=== PATIENT | male | born 1970 | race Caucasian/White ===

== ENCOUNTER → 2017-09-02 | Outpatient (CLI) | payer OTHER | END | disposition home or self-care (01) | LOC: PROCWHC3 14:37 | PROVIDERS: ATTEND Nurse Practitioner Family | DX: R05 Cough (principal) | CPT/HCPCS: 87502 ==

== ENCOUNTER 2018-02-03 18:11 | Emergency (ER) | payer OTHER ==
[2018-02-03 18:23] VITALS: RESP 18
[2018-02-03] MEDS ORDERED: Acetaminophen-Codeine 300-30mg TAB PO STA (19:13)
[2018-02-03] MEDS ORDERED: DIPH,PERTUS(ACELL)TETVAC-LF 0.5 ML VIAL IM ONE (19:15)
--- NOTE | 2018-02-03 19:19 | ED ---
General Adult HPI - General Chief complaint: Wound/Laceration Stated complaint: LACERATION LEFT INDEX FINGER Time Seen by Provider: 02/03/18 18:48 Source: patient, RN notes reviewed Mode of arrival: ambulatory Limitations: no limitations - History of Present Illness Initial comments: 47-year-old male presents to the emergency department for a chief complaint of laceration to his left index finger about one hour ago. Patient was using a paring knife when he accidentally cut his finger. Patient denies pain elsewhere in the finger. Patient denies pain elsewhere in the hand. No other injuries. Patient is not up-to-date on tetanus. Patient states he is able to move his finger without difficulty. Patient has no other complaints at this time including shortness of breath, chest pain, abdominal pain, nausea or vomiting, headache, or visual changes. - Related Data Allergies Allergy/AdvReac Type Severity Reaction Status Date / Time bee venom protein (honey bee) Allergy Anaphylaxis Verified 02/03/18 18:20 levofloxacin [From Levaquin] Allergy Anaphylaxis Verified 02/03/18 18:20 Review of Systems ROS Statement: Those systems with pertinent positive or pertinent negative responses have been documented in the HPI. ROS Other: All systems not noted in ROS Statement are negative. Past Medical History Past Medical History: No Reported History History of Any Multi-Drug Resistant Organisms: None Reported Past Surgical History: Hernia Repair, Orthopedic Surgery Past Psychological History: No Psychological Hx Reported Smoking Status: Current every day smoker Past Alcohol Use History: Occasional Past Drug Use History: Marijuana General Exam Limitations: no limitations General appearance: alert, in no apparent distress Head exam: Present: atraumatic, normocephalic, normal inspection Eye exam: Present: normal appearance ENT exam: Present: normal exam, mucous membranes moist Neck exam: Present: normal inspection, full ROM. Absent: tenderness, meningismus, lymphadenopathy Respiratory exam: Present: normal lung sounds bilaterally. Absent: respiratory distress, wheezes, rales, rhonchi, stridor Cardiovascular Exam: Present: regular rate, normal rhythm, normal heart sounds. Absent: systolic murmur, diastolic murmur, rubs, gallop, clicks Extremities exam: Present: full ROM (Full range of motion of the left second digit including the MCP PIP and DIP joints. There is a 1 cm laceration to the lateral aspect of the left second digit along the distal phalanx.), tenderness ( Tenderness around the laceration site), normal capillary refill (Refill less than 2 seconds and radial pulse 2+ in the left upper extremity), other ( Sensation intact in left second digit. All deep structures intact.). Absent: joint swelling (No swelling or ecchymosis noted.) Course Vital Signs 02/03/18 18:20 Temperature 98.2 F Pulse Rate 83 Respiratory 18 Rate Blood Pressure 160/113 O2 Sat by Pulse 98 Oximetry Procedures - Procedures Initial comment: Body area: Left second digit distal phalanx Laceration length: 1 cm Foreign bodies: no foreign bodies Tendon involvement: none Nerve involvement: none Vascular damage: no Anesthesia: local infiltration Local anesthetic: 2 mL 1% lidocaine Preparation: Patient was prepped and draped in the usual sterile fashion. Irrigation solution: saline Irrigation method: Saline jet lavage Skin closure:5-0 Ethilon using sterile technique Number of sutures: 3 Technique: interupted Dressing: antibiotic ointment/ gauze Patient tolerance: Patient tolerated the procedure well with no immediate complications. Medical Decision Making - Medical Decision Making 47-year-old male presents to the emergency department for a chief complaint of laceration to the left second finger about one hour ago. Patient was using a paring knife when he accidentally cut himself. He has about a 1 cm laceration to the distal phalanx of the lateral aspect. All deep structures intact. Full range of motion. Neurovascular intact. X-ray demonstrates no fractures or dislocations. No foreign bodies. Patient was given tenderness in the emergency department. Patient was sutured with 3 sutures. He will return in 7- 10 days to have sutures removed. He was educated on return to caution to including those for infection. He will follow up with primary care. Disposition Clinical Impression: Laceration Disposition: HOME SELF-CARE Condition: Good Instructions: Care For Your Stitches (ED), Soft Tissue Foreign Body (ED) Additional Instructions: Motrin and tylenol for pain. Please monitor for signs of infection such as spreading redness, streaking redness, drainage or fever and return if these occur. Return in 7-10 days to have sutures removed. Follow up with primary care in 1-2 days. Is patient prescribed a controlled substance at d/c from ED?: No Referrals: Venice Estevez MD [Primary Care Provider] - 1-2 days Time of Disposition: 19:49
[2018-02-03] MEDS ORDERED: LIDOCAINE 1% INJ 10MG/ML (20 ML MDV) SQ ONE (19:20)
--- NOTE | 2018-02-03 19:34 | XR ---
EXAMINATION TYPE: XR finger LT DATE OF EXAM: 02/03/2018 COMPARISON: NONE HISTORY: Cut finger with knife TECHNIQUE: 3 views FINDINGS: I see no fracture nor dislocation. Joint spaces are normal. There is no sign of a foreign b alyce. IMPRESSION: Negative left index finger exam.
[2018-02-03 20:10] VITALS: BP 137/67; PULSE 88; TEMP 97.2
== END 2018-02-03 20:10 | disposition home or self-care (01) ==
LOC: EC 18:11
DX: S61.211A Laceration without foreign body of left index finger without damage to nail, initial encounter (principal); F17.200 Nicotine dependence, unspecified, uncomplicated; Z23 Encounter for immunization; Z88.1 Allergy status to other antibiotic agents; Z91.030 Bee allergy status; W26.0XXA Contact with knife, initial encounter
CPT/HCPCS: 73140; 90715; 99283; 12001; 90471; J2001

== ENCOUNTER 2018-04-10 17:53 | Emergency (ER) | payer OTHER ==
[2018-04-10 17:59] VITALS: RESP 18
[2018-04-10] MEDS ORDERED: methylPREDNISolone SOD SUCCI 125 MG/2 ML VIAL IM ONE (18:23)
--- NOTE | 2018-04-10 18:26 | ED ---
URI HPI - General Chief Complaint: Upper Respiratory Infection Stated Complaint: POSS BRONCHITIS Time Seen by Provider: 04/10/18 18:19 Source: patient, RN notes reviewed Mode of arrival: ambulatory Limitations: no limitations - History of Present Illness Initial Comments: This is a pleasant 47-year-old male who presents emergency department stating that he has had 1 day of a hacking cough. Patient states she is coughing up a small amount of clear to white sputum. Patient denies any fever but has felt as if he may have had a low-grade fever. Patient denies any pain but states the cough is quite annoying and is unrelenting. Patient has been using her rescue inhaler as well as a nebulizer at home. Patient denies history of COPD or asthma. However the patient is a smoker. Patient is also a diabetic. Patient denies alcohol or drug abuse. No chest pain. No abdominal pain. No sore throat or earache. No stiff neck. No skin rashes or lesions. No difficulties with urination or bowel movements. MD Complaint: cough, rhinorrhea, nasal congestion - Related Data Previous Rx's Medication Instructions Recorded Albuterol Nebulized [Ventolin 2.5 mg INHALATION Q4H #25 nebu 04/10/18 Nebulized] Benzonatate [Tessalon Perles] 200 mg PO TID PRN #30 capsule 04/10/18 Doxycycline Hyclate [Vibramycin] 100 mg PO BID 3 Days #20 cap 04/10/18 Allergies Allergy/AdvReac Type Severity Reaction Status Date / Time bee venom protein (honey bee) Allergy Anaphylaxis Verified 04/10/18 17:58 levofloxacin [From Levaquin] Allergy Anaphylaxis Verified 04/10/18 17:58 Review of Systems ROS Statement: Those systems with pertinent positive or pertinent negative responses have been documented in the HPI. ROS Other: All systems not noted in ROS Statement are negative. Past Medical History Past Medical History: No Reported History History of Any Multi-Drug Resistant Organisms: None Reported Past Surgical History: Hernia Repair, Orthopedic Surgery Past Psychological History: No Psychological Hx Reported Smoking Status: Current every day smoker Past Alcohol Use History: Occasional Past Drug Use History: Marijuana General Exam Limitations: no limitations General appearance: alert, in no apparent distress Head exam: Present: atraumatic, normocephalic, normal inspection Eye exam: Present: normal appearance, PERRL, EOMI. Absent: scleral icterus, conjunctival injection, periorbital swelling ENT exam: Present: normal exam, normal oropharynx, mucous membranes moist, TM's normal bilaterally, normal external ear exam Neck exam: Present: normal inspection. Absent: tenderness, meningismus, lymphadenopathy Respiratory exam: Present: normal lung sounds bilaterally, other (Patient has a hacking cough throughout the course of my physical examination). Absent: respiratory distress, wheezes, rales, rhonchi, stridor Cardiovascular Exam: Present: regular rate, normal rhythm, normal heart sounds. Absent: systolic murmur, diastolic murmur, rubs, gallop, clicks GI/Abdominal exam: Present: soft, normal bowel sounds. Absent: distended, tenderness, guarding, rebound, rigid Extremities exam: Present: normal inspection, full ROM, normal capillary refill. Absent: tenderness, pedal edema, joint swelling, calf tenderness Back exam: Present: normal inspection Neurological exam: Present: alert, oriented X3, CN II-XII intact Psychiatric exam: Present: normal affect, normal mood Skin exam: Present: warm, dry, intact, normal color. Absent: rash Course Vital Signs 04/10/18 17:55 Temperature 98.5 F Pulse Rate 83 Respiratory 18 Rate Blood Pressure 128/74 O2 Sat by Pulse 98 Oximetry Medical Decision Making - Medical Decision Making Patient was counseled on acute bronchitis and possible viral versus bacterial etiology. Patient was requesting an antibiotic. I did agree to give her prescription. I advised delayed prescription as I believe his symptomology is due to a viral etiology. Chest x-ray was read by me and shows evidence of viral inflammation however no lobar consolidation. Awaiting radiology interpretation. Patient was counseled on smoking cessation. Patient advised to quit smoking immediately. Patient was also advised to follow-up with his regular physician. He knows she can return to the emergency department at anytime is symptoms worsen or any other problems arise. Case was discussed with ER physician and present the entire time. - Radiology Data Radiology results: image reviewed Disposition Clinical Impression: Acute bronchitis, Cough Disposition: HOME SELF-CARE Condition: Good Instructions: Acute Bronchitis (ED) Additional Instructions: Return to the ER at once if the symptoms worsen or problems or difficulties arise. Make a follow-up appointment with your regular physician. Prescriptions: Albuterol Nebulized [Ventolin Nebulized] 2.5 mg INHALATION Q4H #25 nebu Benzonatate [Tessalon Perles] 200 mg PO TID PRN #30 capsule PRN Reason: Cough Doxycycline Hyclate [Vibramycin] 100 mg PO BID 3 Days #20 cap Is patient prescribed a controlled substance at d/c from ED?: No Referrals: Venice Estevez MD [Primary Care Provider] - 1-2 days Time of Disposition: 19:06 Decision to Admit Reason: Admit from EC
--- NOTE | 2018-04-10 18:36 | XR ---
EXAMINATION TYPE: XR chest 2V DATE OF EXAM: 04/10/2018 COMPARISON: 11/22/2013 HISTORY: Cough TECHNIQUE: Frontal and lateral views of the chest are obtained. FINDINGS: Heart and mediastinum are normal. Lungs are clear. Diaphragm is normal. Bony thorax is nor mal. IMPRESSION: Normal chest. No change.
[2018-04-10 19:10] VITALS: BP 132/85; PULSE 85; TEMP 98.3
== END 2018-04-10 19:10 | disposition home or self-care (01) ==
LOC: EC 17:53
DX: J20.9 Acute bronchitis, unspecified (principal); E11.9 Type 2 diabetes mellitus without complications; F17.200 Nicotine dependence, unspecified, uncomplicated; Z71.6 Tobacco abuse counseling; Z91.030 Bee allergy status; Z88.1 Allergy status to other antibiotic agents
CPT/HCPCS: 71046; 99283; 96372; J2930

== ENCOUNTER 2018-08-20 10:42 | Observation (INO) | payer OTHER ==
[2018-08-20] MEDS ORDERED: ASPIRIN 81 MG PO STA (11:07)
[2018-08-20] MEDS ORDERED: HEPARIN SODIUM,PORCINE 5,000 UNIT/ML 1 ML VIAL IV PRN (11:10)
[2018-08-20] MEDS ORDERED: HEPARIN SODIUM,PORCINE 5,000 UNIT/ML 1 ML VIAL IV ONE (11:10)
--- NOTE | 2018-08-20 11:10 | ED ---
General Adult HPI - General Chief complaint: Chest Pain Stated complaint: poss heart attack Source: patient Mode of arrival: wheelchair Limitations: no limitations - Related Data Home Medications Medication Instructions Recorded Confirmed Gemfibrozil [Lopid] 600 mg PO AC-BID 08/20/18 08/20/18 Lisinopril [Zestril] 2.5 mg PO DAILY 08/20/18 08/20/18 Naproxen Sodium [Aleve] 220 mg PO DAILY PRN 08/20/18 08/20/18 metFORMIN HCL [Glucophage] 500 mg PO BID 08/20/18 08/20/18 Allergies Allergy/AdvReac Type Severity Reaction Status Date / Time bee venom protein (honey bee) Allergy Anaphylaxis Verified 08/20/18 11:19 levofloxacin [From Levaquin] Allergy Anaphylaxis Verified 08/20/18 11:19 Review of Systems ROS Statement: Those systems with pertinent positive or pertinent negative responses have been documented in the HPI. ROS Other: All systems not noted in ROS Statement are negative. Past Medical History Past Medical History: Diabetes Mellitus, Hyperlipidemia, Hypertension History of Any Multi-Drug Resistant Organisms: None Reported Past Surgical History: Hernia Repair, Orthopedic Surgery Past Psychological History: No Psychological Hx Reported Smoking Status: Current every day smoker Past Alcohol Use History: Occasional Past Drug Use History: Marijuana General Exam Limitations: no limitations Course Vital Signs 08/20/18 08/20/18 10:47 11:26 Temperature 98.1 F Pulse Rate 77 Pulse Rate [ 76 Left Sitting Pulse Oximetery ] Respiratory 16 Rate Blood Pressure 171/107 O2 Sat by Pulse 97 Oximetry Medical Decision Making - Medical Decision Making Dictation was produced using [employer] dictation software. please excuse any grammatical, word or spelling errors. Chief Complaint: 48 male past medical history diabetes, dyslipidemia hypertension presents with chest pain. History of Present Illness: 48-year-old male. He has multiple comorbidities. States today at approximately 8 AM he had episode of chest pain with radiation to the left upper extremity. He states that his symptoms resolved after several minutes. He tried calling on the 1 to get information about his symptoms however he was able to get any. He drove here with his . Patient states that his symptoms are mildly improved. Patient denies any cardiac history. He does have history of diabetes, dyslipidemia hypertension. Patient denies any diaphoresis but there is associated nausea. The ROS documented in this emergency department record has been reviewed and confirmed by me. Those systems with pertinent positive or negative responses have been documented in the HPI. All other systems are other negative and/or noncontributory. PHYSICAL EXAM: General Impression: Alert and oriented x3, not in acute distress HEENT: Normocephalic atraumatic, extra-ocular movements intact, pupils equal and reactive to light bilaterally, mucous membranes moist. Cardiovascular: Heart regular rate and rhythm, S1&S2 audible, no murmurs, rubs or gallops Chest: Lungs clear to auscultation bilaterally, no rhonchi, no wheeze, no rales Abdomen: Bowel sounds present, abdomen soft, non-tender, non-distended, no organomegaly Musculoskeletal: Pulses present and equal in all extremities, no peripheral edema Motor: Power 5/5 bilaterally, no focal deficits noted Neurological: CN II-XII grossly intact, no focal motor or sensory deficits noted Skin: Intact with no visualized rashes Psych: Normal affect and mood ED course: 48-year-old male with ACS-type symptoms. Vital signs upon arrival are within acceptable limits. Patient discussed with this time. Patient states she has concerning.Laboratory evaluation obtained. CBC, coag panel, metabolic panel is obtained. No acute findings. Cardiac enzymes are negative. Chest x-ray shows no acute processes. Patient's story is very a serious sounding. Patient started on heparin. He is given aspirin. Patient be admitted for unstable angina. EKG interpretation: Ventricular rate 76, normal sinus rhythm, AZ interval 142, QRS 90, QTC 49. No AZ prolongation, no QTC prolongation, no ST. there is isolated T-wave inversion in aVL. There is concerning hyperacute T waves in V1 and V3 Overall, this EKG is unremarkable - Lab Data Result diagrams: 08/20/18 11:13 08/20/18 11:13 Lab Results 08/20/18 08/20/18 08/20/18 Range/Units 11:13 11:13 11:13 WBC 10.2 (3.8-10.6) k/uL RBC 5.85 (4.30-5.90) m/uL Hgb 17.0 (13.0-17.5) gm/dL Hct 51.4 (39.0-53.0) % MCV 87.8 (80.0-100.0) fL MCH 29.1 (25.0-35.0) pg MCHC 33.1 (31.0-37.0) g/dL RDW 13.5 (11.5-15.5) % Plt Count 226 (150-450) k/uL Neutrophils % 62 % Lymphocytes % 26 % Monocytes % 5 % Eosinophils % 6 % Basophils % 0 % Neutrophils # 6.3 (1.3-7.7) k/uL Lymphocytes # 2.7 (1.0-4.8) k/uL Monocytes # 0.5 (0-1.0) k/uL Eosinophils # 0.6 (0-0.7) k/uL Basophils # 0.0 (0-0.2) k/uL PT (9.0-12.0) sec INR (<1.2) APTT (22.0-30.0) sec Sodium 140 (137-145) mmol/L Potassium 4.8 (3.5-5.1) mmol/L Chloride 107 (98-107) mmol/L Carbon Dioxide 24 (22-30) mmol/L Anion Gap 9 mmol/L BUN 18 (9-20) mg/dL Creatinine 0.99 (0.66-1.25) mg/dL Est GFR (CKD-EPI)AfAm >90 (>60 ml/min/1.73 sqM) Est GFR (CKD-EPI)NonAf 90 (>60 ml/min/1.73 sqM) Glucose 107 H (74-99) mg/dL Calcium 10.2 (8.4-10.2) mg/dL Magnesium 2.0 (1.6-2.3) mg/dL Total Bilirubin 0.6 (0.2-1.3) mg/dL AST 34 (17-59) U/L ALT 71 (21-72) U/L Alkaline Phosphatase 93 (38-126) U/L Total Creatine Kinase 88 (55-170) U/L CK-MB (CK-2) 0.8 (0.0-2.4) ng/mL CK-MB (CK-2) Rel Index 0.9 Troponin I <0.012 (0.000-0.034) ng/mL Total Protein 7.5 (6.3-8.2) g/dL Albumin 4.5 (3.5-5.0) g/dL 01/25/19 Range/Units 11:13 WBC (3.8-10.6) k/uL RBC (4.30-5.90) m/uL Hgb (13.0-17.5) gm/dL Hct (39.0-53.0) % MCV (80.0-100.0) fL MCH (25.0-35.0) pg MCHC (31.0-37.0) g/dL RDW (11.5-15.5) % Plt Count (150-450) k/uL Neutrophils % % Lymphocytes % % Monocytes % % Eosinophils % % Basophils % % Neutrophils # (1.3-7.7) k/uL Lymphocytes # (1.0-4.8) k/uL Monocytes # (0-1.0) k/uL Eosinophils # (0-0.7) k/uL Basophils # (0-0.2) k/uL PT 9.9 (9.0-12.0) sec INR 0.9 (<1.2) APTT 26.8 (22.0-30.0) sec Sodium (137-145) mmol/L Potassium (3.5-5.1) mmol/L Chloride (98-107) mmol/L Carbon Dioxide (22-30) mmol/L Anion Gap mmol/L BUN (9-20) mg/dL Creatinine (0.66-1.25) mg/dL Est GFR (CKD-EPI)AfAm (>60 ml/min/1.73 sqM) Est GFR (CKD-EPI)NonAf (>60 ml/min/1.73 sqM) Glucose (74-99) mg/dL Calcium (8.4-10.2) mg/dL Magnesium (1.6-2.3) mg/dL Total Bilirubin (0.2-1.3) mg/dL AST (17-59) U/L ALT (21-72) U/L Alkaline Phosphatase (38-126) U/L Total Creatine Kinase (55-170) U/L CK-MB (CK-2) (0.0-2.4) ng/mL CK-MB (CK-2) Rel Index Troponin I (0.000-0.034) ng/mL Total Protein (6.3-8.2) g/dL Albumin (3.5-5.0) g/dL Disposition Clinical Impression: Chest pain Disposition: ADMITTED IP TO THIS HOSP Condition: Fair Referrals: Venice Estevez MD [Primary Care Provider] - 1-2 days Decision Time: 12:21
[2018-08-20] MEDS ORDERED: HEPARIN SOD,PORK IN 0.45% NACL 25,000 UNIT in 0.45% NACL 1 250ML.BAG IV SCH (11:15)
[2018-08-20 11:47] LABS: Basophils % (A) 0 %; Eosinophils # (A) 0.6 k/uL (0-0.7); Eosinophils % (A) 6 %; HCT 51.4 % (39.0-53.0); Lymphocytes # (A) 2.7 k/uL (1.0-4.8); Lymphocytes % (A) 26 %; MCH 29.1 pg (25.0-35.0); MCHC 33.1 g/dL (31.0-37.0); MCV 87.8 fL (80.0-100.0); Mean Platelet Volume 7.4; Monocytes # (A) 0.5 k/uL (0-1.0); Monocytes % (A) 5 %; Neutrophils # (A) 6.3 k/uL (1.3-7.7); Neutrophils % (A) 62 %; Platelet Count 226 k/uL (150-450); RBC 5.85 m/uL (4.30-5.90); RDW 13.5 % (11.5-15.5); WBC 10.2 k/uL (3.8-10.6)
[2018-08-20 11:56] LABS: ALT 71 U/L (21-72); AST 34 U/L (17-59); Albumin 4.5 g/dL (3.5-5.0); Alkaline Phosphatase 93 U/L (38-126); Anion Gap 9 mmol/L; Blood Urea Nitrogen 18 mg/dL (9-20); Calcium 10.2 mg/dL (8.4-10.2); Carbon Dioxide 24 mmol/L (22-30); Chloride 107 mmol/L (98-107); Glucose 107 mg/dL (74-99); Potassium 4.8 mmol/L (3.5-5.1); Sodium 140 mmol/L (137-145); Total Bilirubin 0.6 mg/dL (0.2-1.3); Total Protein 7.5 g/dL (6.3-8.2)
--- NOTE | 2018-08-20 12:01 | XR ---
EXAMINATION TYPE: XR chest 2V DATE OF EXAM: 08/20/2018 COMPARISON: 04/10/2018 INDICATION: Chest pain TECHNIQUE: Frontal and lateral views of the chest are obtained. FINDINGS: The heart size is normal. The pulmonary vasculature is normal. The lungs are clear. IMPRESSION: 1. No acute pulmonary process.
[2018-08-20 12:02] LABS: Creatine Kinase 88 U/L (55-170); INR 0.9 (<1.2); Partial Thromboplastin Time 26.8 sec (22.0-30.0); Prothrombin Time 9.9 sec (9.0-12.0)
[2018-08-20 12:15] LABS: Creatine Kinase MB 0.8 ng/mL (0.0-2.4); Troponin I <0.012 ng/mL (0.000-0.034)
[2018-08-20] MEDS ORDERED: NITROGLYCERIN SL TABS 0.4 MG TAB SUBLINGUAL PRN (12:18)
[2018-08-20] MEDS ORDERED: NICOTINE 14MG/24HR PATCH TRANSDERM STA (13:15)
[2018-08-20 14:09] VITALS: BMI 39.1
[2018-08-20] MEDS ORDERED: INFLUENZA VACCINE (6 MOS+) 60 MCG/0.5 ML SYRINGE IM ONE (14:12)
[2018-08-20 16:42] LABS: Glucose,Whole Blood 208 mg/dL (75-99)
[2018-08-20] MEDS ORDERED: ACETAMINOPHEN TAB 325 MG TAB PO PRN (17:10)
[2018-08-20] MEDS: INSULIN ASPART 100 UNIT/ML 1 ML 10 ML VIAL SQ SCH ×3 (18:12→20:53)
[2018-08-20] MEDS: metFORMIN 500 MG TAB PO SCH (18:13)
[2018-08-20 19:18] LABS: Creatine Kinase 71 U/L (55-170)
[2018-08-20 19:28] LABS: Creatine Kinase MB 0.6 ng/mL (0.0-2.4); Troponin I <0.012 ng/mL (0.000-0.034)
[2018-08-20] MEDS: FENOFIBRATE 160 MG TAB PO SCH ×2 (19:39→20:49)
[2018-08-20] MEDS ORDERED: MELATONIN 5 MG TABLET PO PRN (19:53)
[2018-08-20 21:09] LABS: Glucose,Whole Blood 188 mg/dL (75-99)
--- NOTE | 2018-08-20 22:59 | P.HPIM ---
History of Present Illness H&P Date: 08/20/18 Chief Complaint: Chest pain Patient is a 48-year-old male with a known history of hypertension, diabetes type 2, GERD, obstructive sleep apnea on CPAP at home and nicotine addiction came to ER with the complaints of retrosternal chest pain started this morning is associated with shortness of breath as well. Patient was also having left arm tingling feeling. Patient tried to search online and concerned about heart attack. Patient was brought to the hospital by EMS. Denied any associated nausea vomiting or diaphoresis. No headache or dizziness or lightheadedness. Patient does have risk factors for coronary artery disease. Denied any family history of premature coronary artery disease. No fever no chills. No cough or sputum production. No recent illnesses or sick contacts. Chest x-ray showed no acute cardio pulmonary process EKG showed normal sinus rhythm Troponin 2 negative. Review of Systems Constitutional: Patient denies any fever or chills . No generalized weakness or weight loss. Abdomen: Patient denied nausea vomiting and diarrhea and abdominal pain. Cardiovascular: Chest pain with left arm tingling and shortness of breath. no palpitations. No leg swelling. Respiratory: patient denied any cough is from production. No shortness of breath Neurologic: Patient denied any numbness or tingling headache. Musculoskeletal: Patient denies any complaints of joint swelling or deformity. Skin: Negative Psychiatric: Negative Endocrine: No heat or cold intolerance. No recent weight gain. Genitourinary: No dysuria or hematuria. All other 14 point ROS negative except the above Past Medical History Past Medical History: Diabetes Mellitus, GERD/Reflux, Hyperlipidemia, Hypertension, Osteoarthritis (OA), Sleep Apnea/CPAP/BIPAP Additional Past Medical History / Comment(s): NIDDM type II, bronchitis, LILIANA with Cpap, bilateral tinnitis, arthritis bilateral knees (R knee worse) and hands, carpal tunnel syndrome bilaterally, migraines. History of Any Multi-Drug Resistant Organisms: None Reported Past Surgical History: Hernia Repair, Orthopedic Surgery Additional Past Surgical History / Comment(s): Umbilical hernia repair, R hand surgery d/t degloving when 9 year old, EGD, colonoscopy with benign polypectomies. Past Anesthesia/Blood Transfusion Reactions: No Reported Reaction Smoking Status: Current every day smoker - Past Family History Father Additional Family Medical History / Comment(s): Pt does not know father's medical history, he recently reestablished contact with his father. Mother Family Medical History: Vascular Disorder Additional Family Medical History / Comment(s): Mother from a brain aneurysm at the age of 62 yrs. Medications and Allergies Home Medications Medication Instructions Recorded Confirmed Type Gemfibrozil [Lopid] 600 mg PO AC-BID 08/20/18 08/20/18 History Lisinopril [Zestril] 2.5 mg PO DAILY 08/20/18 08/20/18 History Naproxen Sodium [Aleve] 220 mg PO DAILY PRN 08/20/18 08/20/18 History metFORMIN HCL [Glucophage] 500 mg PO BID 08/20/18 08/20/18 History Allergies Allergy/AdvReac Type Severity Reaction Status Date / Time bee venom protein (honey bee) Allergy Anaphylaxis Verified 08/20/18 11:19 levofloxacin [From Levaquin] Allergy Anaphylaxis Verified 08/20/18 11:19 Physical Exam Vitals: Vital Signs Temp Pulse Pulse Pulse Resp BP BP 08/20/18 14:02 98.1 F 70 19 124/93 08/20/18 14:00 98.3 F 67 18 141/86 08/20/18 13:50 70 19 124/93 08/20/18 13:40 70 19 124/93 08/20/18 13:30 68 16 124/93 08/20/18 13:20 67 17 111/79 08/20/18 13:10 68 14 111/79 08/20/18 13:00 68 13 131/81 08/20/18 12:50 63 22 131/81 08/20/18 12:40 67 25 H 138/74 08/20/18 12:30 69 26 H 138/74 08/20/18 12:20 70 25 H 158/85 08/20/18 12:10 72 27 H 158/85 08/20/18 12:00 69 44 H 151/106 08/20/18 11:50 71 26 H 151/106 08/20/18 11:40 73 19 130/81 08/20/18 11:30 74 20 130/81 08/20/18 11:26 76 08/20/18 11:20 70 20 148/91 08/20/18 11:10 70 20 148/91 08/20/18 11:02 75 23 08/20/18 10:47 98.1 F 77 16 171/107 Pulse Ox 08/20/18 14:02 96 08/20/18 14:00 95 08/20/18 13:50 96 08/20/18 13:40 96 08/20/18 13:30 98 08/20/18 13:20 97 08/20/18 13:10 97 08/20/18 13:00 97 08/20/18 12:50 98 08/20/18 12:40 97 08/20/18 12:30 98 08/20/18 12:20 97 08/20/18 12:10 96 08/20/18 12:00 98 08/20/18 11:50 97 08/20/18 11:40 98 08/20/18 11:30 96 08/20/18 11:26 08/20/18 11:20 94 L 08/20/18 11:10 08/20/18 11:02 08/20/18 10:47 97 Intake and Output 08/20/18 08/20/18 08/20/18 06:59 14:59 22:59 Intake Total 200 Balance 200 Intake: Amount of Fluid Infused ( 200 ml) Other: Weight 120.202 kg PHYSICAL EXAMINATION: Patient is lying in the bed comfortably, no acute distress, awake alert and oriented.. HEENT: Normocephalic. Neck is supple. Pupils reactive. Nostrils clear. Oral cavity is moist. Ears reveal no drainage. Neck reveals no JVD, carotid bruits, or thyromegaly. CHEST EXAMINATION: Trachea is central. Symmetrical expansion. Lung minor clear to auscultation and percussion. CARDIAC: Normal S1, S2 with no gallops. No murmurs ABDOMEN: Soft. Bowel sounds normal. No organomegaly. No abdominal bruits. Extremities: reveal no edema. No clubbing or cyanosis Neurologically awake, alert, oriented x3 with well-coordinated movements. No focal deficits noted Skin: No rash or skin lesions. Psychiatric: Coperative. Nonsuicidal Musculoskeletal: No joint swelling or deformity. Normal range of motion. Results CBC & Chem 7: 08/20/18 11:13 08/20/18 11:13 Labs: Abnormal Lab Results - Last 24 Hours (Table) 08/20/18 Range/Units 11:13 Glucose 107 H (74-99) mg/dL Thrombosis Risk Factor Assmnt - Choose All That Apply Any of the Below Risk Factors Present?: Yes Each Factor Represents 1 point: Age 41-60 years, Obesity (BMI >25) Other Risk Factors: No Other congenital or acquired thrombophilia - If yes, enter type in comment: No Thrombosis Risk Factor Assessment Total Risk Factor Score: 2 Thrombosis Risk Factor Assessment Level: Low Risk Assessment and Plan Assessment: Chest pain. Possible unstable angina Diabetes type 2 [id number] Hypertension Hyperlipidemia Nicotine addiction Obstructive sleep apnea on CPAP at home Morbid obesity BMI 39.1 History of migraine headaches Carpal tunnel syndrome Bilateral arthritis of knees. Plan: Patient will be continued on telemetry monitoring. Serial EKG and troponins. Continue with heparin drip and cardiology consult. Patient was given a dose of aspirin in the ER. We'll check a lipid panel. Continue to follow closely and further recommendations based on the clinical course. Patient will be started on CPAP at at bedtime with his current home settings. Smoking cessation has been counseled extensively. Time with Patient: Greater than 30
[2018-08-21 01:14] LABS: Creatine Kinase 66 U/L (55-170)
[2018-08-21 01:14] LABS: Hemoglobin A1C 7.4 % (4.0-6.0)
[2018-08-21 01:28] LABS: Creatine Kinase MB 0.5 ng/mL (0.0-2.4); Troponin I <0.012 ng/mL (0.000-0.034)
[2018-08-21 07:04] LABS: Glucose,Whole Blood 135 mg/dL (75-99)
[2018-08-21 08:02] LABS: Cholesterol 253 mg/dL (<200); HDL Cholesterol 41 mg/dL (40-60); Triglycerides 437 mg/dL (<150)
--- NOTE | 2018-08-21 08:24 | P.CRDCN ---
History of Present Illness Consult date: 08/21/18 Chief complaint: Chest pain History of present illness: This is a pleasant 48-year-old gentleman with a past medical history significant for obesity, borderline diabetes on metformin, hypertension, dyslipidemia, as well as history of smoking, presented to the emergency room complaining of chest discomfort. The patient recently has been under tremendous amount of stress. He has been fighting with his previous regarding courtesy of his daughter as well as his just had a miscarriage few days ago. He was in his usual state of health until yesterday when he was at home and suddenly started experiencing discomfort in the chest, as a stabbing kind of discomfort, with some radiation to the left arm, with associated symptoms of dizziness. No syncope. No sweating. No shortness of breath. He decided to come to the emergency room. The chest x-ray showed no abnormalities. The EKG showed sinus rhythm with nonspecific changes. The cardiac enzymes came in to be unremarkable with 3 sets. The patient continues to be chest pain-free during his hospitalization. I did discuss with the patient and his the next step which is ruling out severe coronary artery disease giving his risk factors, and the plan to proceed with a stress test. Unfortunately we come to stress is on the weekend. Also the patient, states that Thursday because he has a court on Thursday. Because of that I am getting the patient up and around and if he is chest pain-free he might be able to be discharged home and have the stress test done as an outpatient. Past Medical History Past Medical History: Diabetes Mellitus, GERD/Reflux, Hyperlipidemia, Hypertension, Osteoarthritis (OA), Sleep Apnea/CPAP/BIPAP Additional Past Medical History / Comment(s): NIDDM type II, bronchitis, LILIANA with Cpap, bilateral tinnitis, arthritis bilateral knees (R knee worse) and hands, carpal tunnel syndrome bilaterally, migraines. History of Any Multi-Drug Resistant Organisms: None Reported Past Surgical History: Hernia Repair, Orthopedic Surgery Additional Past Surgical History / Comment(s): Umbilical hernia repair, R hand surgery d/t degloving when 9 year old, EGD, colonoscopy with benign polypectomies. Past Anesthesia/Blood Transfusion Reactions: No Reported Reaction Smoking Status: Current every day smoker - Past Family History Father Additional Family Medical History / Comment(s): Pt does not know father's medical history, he recently reestablished contact with his father. Mother Family Medical History: Vascular Disorder Additional Family Medical History / Comment(s): Mother from a brain aneurysm at the age of 62 yrs. Medications and Allergies Home Medications Medication Instructions Recorded Confirmed Type Gemfibrozil [Lopid] 600 mg PO AC-BID 08/20/18 08/20/18 History Lisinopril [Zestril] 2.5 mg PO DAILY 08/20/18 08/20/18 History Naproxen Sodium [Aleve] 220 mg PO DAILY PRN 08/20/18 08/20/18 History metFORMIN HCL [Glucophage] 500 mg PO BID 08/20/18 08/20/18 History Allergies Allergy/AdvReac Type Severity Reaction Status Date / Time bee venom protein (honey bee) Allergy Anaphylaxis Verified 08/20/18 11:19 levofloxacin [From Levaquin] Allergy Anaphylaxis Verified 08/20/18 11:19 Physical Exam Vitals: Vital Signs Temp Pulse Pulse Pulse Resp BP BP 08/21/18 04:00 97.8 F 66 16 134/69 08/21/18 03:47 16 08/20/18 23:59 98.3 F 76 16 121/66 08/20/18 23:20 18 08/20/18 20:00 99.2 F 81 18 172/94 08/20/18 16:00 78 18 08/20/18 15:44 98.5 F 78 18 126/74 08/20/18 15:38 08/20/18 14:10 78 18 08/20/18 14:02 98.1 F 70 19 124/93 08/20/18 14:00 98.3 F 67 18 141/86 08/20/18 13:50 70 19 124/93 08/20/18 13:40 70 19 124/93 08/20/18 13:30 68 16 124/93 08/20/18 13:20 67 17 111/79 08/20/18 13:10 68 14 111/79 08/20/18 13:00 68 13 131/81 08/20/18 12:50 63 22 131/81 08/20/18 12:40 67 25 H 138/74 08/20/18 12:30 69 26 H 138/74 08/20/18 12:20 70 25 H 158/85 08/20/18 12:10 72 27 H 158/85 08/20/18 12:00 69 44 H 151/106 08/20/18 11:50 71 26 H 151/106 08/20/18 11:40 73 19 130/81 08/20/18 11:30 74 20 130/81 08/20/18 11:26 76 08/20/18 11:20 70 20 148/91 08/20/18 11:10 70 20 148/91 08/20/18 11:02 75 23 08/20/18 10:47 98.1 F 77 16 171/107 Pulse Ox 08/21/18 04:00 97 08/21/18 03:47 08/20/18 23:59 96 08/20/18 23:20 08/20/18 20:00 95 08/20/18 16:00 08/20/18 15:44 95 08/20/18 15:38 97 08/20/18 14:10 08/20/18 14:02 96 08/20/18 14:00 95 08/20/18 13:50 96 08/20/18 13:40 96 08/20/18 13:30 98 08/20/18 13:20 97 08/20/18 13:10 97 08/20/18 13:00 97 08/20/18 12:50 98 08/20/18 12:40 97 08/20/18 12:30 98 08/20/18 12:20 97 08/20/18 12:10 96 08/20/18 12:00 98 08/20/18 11:50 97 08/20/18 11:40 98 08/20/18 11:30 96 08/20/18 11:26 08/20/18 11:20 94 L 08/20/18 11:10 08/20/18 11:02 08/20/18 10:47 97 Intake and Output 08/20/18 08/21/18 08/21/18 22:59 06:59 14:59 Intake Total 542.833 81.033 Balance 542.833 81.033 Intake: Intake, IV Titration 62.833 81.033 Amount Heparin Sod,Pork in 0.45% 62.833 81.033 NaCl 25,000 unit In 0.45 % NaCl 1 250ml.bag @ 8.32 UNITS/KG/HR 10 mls/hr IV .Q24H [facility] Rx#:[id number] Oral 480 Other: Voiding Method Toilet Toilet # Voids 1 2 - Constitutional General appearance: no acute distress - Respiratory Respiratory: bilateral: CTA - Cardiovascular Rhythm: regular Heart sounds: normal: S1, S2 Results 08/20/18 11:13 08/20/18 11:13 Cardiac Enzymes 08/20/18 08/20/18 08/20/18 Range/Units 11:13 11:13 18:42 AST 34 (17-59) U/L CK-MB (CK-2) 0.8 0.6 (0.0-2.4) ng/mL Troponin I <0.012 <0.012 (0.000-0.034) ng/mL 08/21/18 Range/Units 00:11 AST (17-59) U/L CK-MB (CK-2) 0.5 (0.0-2.4) ng/mL Troponin I <0.012 (0.000-0.034) ng/mL Coagulation 08/20/18 08/20/18 08/21/18 Range/Units 11:13 18:42 00:11 PT 9.9 (9.0-12.0) sec APTT 26.8 28.3 32.2 H (22.0-30.0) sec 08/21/18 Range/Units 07:18 PT (9.0-12.0) sec APTT 44.0 H (22.0-30.0) sec Lipids 08/21/18 Range/Units 07:18 Triglycerides 437 H (<150) mg/dL Cholesterol 253 H (<200) mg/dL HDL Cholesterol 41 (40-60) mg/dL CBC 08/20/18 Range/Units 11:13 WBC 10.2 (3.8-10.6) k/uL RBC 5.85 (4.30-5.90) m/uL Hgb 17.0 (13.0-17.5) gm/dL Hct 51.4 (39.0-53.0) % Plt Count 226 (150-450) k/uL Comprehensive Metabolic Panel 08/20/18 Range/Units 11:13 Sodium 140 (137-145) mmol/L Potassium 4.8 (3.5-5.1) mmol/L Chloride 107 (98-107) mmol/L Carbon Dioxide 24 (22-30) mmol/L BUN 18 (9-20) mg/dL Creatinine 0.99 (0.66-1.25) mg/dL Glucose 107 H (74-99) mg/dL Calcium 10.2 (8.4-10.2) mg/dL AST 34 (17-59) U/L ALT 71 (21-72) U/L Alkaline Phosphatase 93 (38-126) U/L Total Protein 7.5 (6.3-8.2) g/dL Albumin 4.5 (3.5-5.0) g/dL Current Medications Generic Name Dose Route Start Last Admin Trade Name Freq PRN Reason Stop Dose Admin Acetaminophen 650 mg 08/20/18 17:10 Tylenol Tab PO Q4HR PRN Fever and/ or Mild Pain Aspirin 325 mg 08/21/18 09:00 Aspirin PO DAILY [facility] Fenofibrate 160 mg 08/20/18 17:30 08/20/18 20:49 Lofibra PO 160 mg [id number] [facility] Administration Heparin Sodium (Porcine) 0 unit 08/20/18 11:10 Heparin IV PER PROTOCOL PRN Low PTT Protocol Heparin Sodium/Sodium Chloride 250 mls @ 10 mls/hr 08/20/18 11:15 08/21/18 01 :05 25,000 unit/ Sodium Chloride IV 12.89 units/kg/hr .Q24H [facility] 15.5 mls/hr Titration Protocol 8.32 UNITS/KG/HR Insulin Aspart 0 unit 08/20/18 17:30 08/20/18 20:53 Novolog SQ Not Given ACHS [facility] Protocol Lisinopril 2.5 mg 08/21/18 09:00 Zestril PO DAILY [facility] Melatonin 5 mg 08/20/18 19:53 Melatonin PO HS PRN Insomnia Metformin HCl 500 mg 08/20/18 17:30 08/20/18 18:13 Glucophage PO 500 mg AC-BID [facility] Administration Nitroglycerin 0.4 mg 08/20/18 12:18 Nitrostat SUBLINGUAL Q5M PRN Chest Pain Intake and Output 08/20/18 08/21/18 08/21/18 22:59 06:59 14:59 Intake Total 542.833 81.033 Balance 542.833 81.033 Intake: Intake, IV Titration 62.833 81.033 Amount Heparin Sod,Pork in 0.45% 62.833 81.033 NaCl 25,000 unit In 0.45 % NaCl 1 250ml.bag @ 8.32 UNITS/KG/HR 10 mls/hr IV .Q24H [facility] Rx#:[id number] Oral 480 Other: Voiding Method Toilet Toilet # Voids 1 2 08/20/18 11:13 08/20/18 11:13 Assessment and Plan Assessment: Assessment #1 when episode of chest discomfort, seems to be atypical #2 multiple risk factors including diabetes, hypertension, and dyslipidemia as well as history of smoking Plan #1 acute coronary event was ruled out. 3 sets of enzymes given to be unremarkable. The EKG did not show any ischemic changes #2 get the patient up and around and if he is asymptomatic he might be able to be discharged home #3 stress test to rule out any severe CAD.
[2018-08-21] MEDS: INSULIN ASPART 100 UNIT/ML 1 ML 10 ML VIAL SQ SCH (08:25)
[2018-08-21] MEDS: metFORMIN 500 MG TAB PO SCH (08:26)
[2018-08-21] MEDS ORDERED: LISINOPRIL 2.5 MG TAB PO SCH (09:00)
[2018-08-21] MEDS ORDERED: ASPIRIN 325 MG TAB PO SCH (09:00)
[2018-08-21 11:51] LABS: Glucose,Whole Blood 155 mg/dL (75-99)
[2018-08-21 12:05] VITALS: BP 121/70; PULSE 74; RESP 16; TEMP 98.3
[2018-08-21] MEDS ORDERED: ATORVASTATIN 40 MG TAB PO SCH (21:00)
== END 2018-08-21 13:32 | disposition home or self-care (01) ==
LOC: EC 10:42 → 1SOBS 12:20
PROVIDERS: ADMIT Internal Medicine; ATTEND Internal Medicine
DX: R07.89 Other chest pain (principal); R42 Dizziness and giddiness; R20.2 Paresthesia of skin; R06.02 Shortness of breath; R11.0 Nausea; I10 Essential (primary) hypertension; E11.9 Type 2 diabetes mellitus without complications; K21.9 Gastro-esophageal reflux disease without esophagitis; G47.33 Obstructive sleep apnea (adult) (pediatric); Z99.89 Dependence on other enabling machines and devices; E78.5 Hyperlipidemia, unspecified; E66.01 Morbid (severe) obesity due to excess calories; Z68.39 Body mass index [BMI] 39.0-39.9, adult; F17.200 Nicotine dependence, unspecified, uncomplicated; Z87.09 Personal history of other diseases of the respiratory system; H93.13 Tinnitus, bilateral; G56.03 Carpal tunnel syndrome, bilateral upper limbs; M17.0 Bilateral primary osteoarthritis of knee; M19.042 Primary osteoarthritis, left hand; M19.041 Primary osteoarthritis, right hand; G43.909 Migraine, unspecified, not intractable, without status migrainosus; Z82.49 Family history of ischemic heart disease and other diseases of the circulatory system; Z79.899 Other long term (current) drug therapy; Z79.84 Long term (current) use of oral hypoglycemic drugs; Z88.1 Allergy status to other antibiotic agents; Z91.030 Bee allergy status; Z63.79 Other stressful life events affecting family and household
CPT/HCPCS: 96366 ×2; 96376; 96365; 99285; 36415; 93005; 80061; 80053; 82550 ×2; 82553 ×2; 83735; 84484 ×2; 85025; 85610; 85730 ×2; 83036; 71046; G0378 ×2; S4990; J1644 ×2

== ENCOUNTER 2019-01-09 18:08 | Inpatient (IN) | payer OTHER ==
--- NOTE | 2019-01-09 18:26 | ED ---
Skin/Abscess/FB HPI - General Chief complaint: Skin/Abscess/Foreign Body Stated complaint: abscess inner left thigh Time Seen by Provider: 01/09/19 18:24 Source: patient Mode of arrival: ambulatory Limitations: no limitations - History of Present Illness Initial comments: 48-year-old male history of diabetes presenting today for chief complaint of abscess to left upper thigh. Patient states that about 2 weeks ago he noticed something that looked "ingrown hair. He states his attempted to pop and lanced the area at home, not using sterile technique. He has been applying silvadene to the area thinking this would help and took some old bactrim he was previously prescribed. He states has been growing in size. Patient states it is expressing purulent drainage. Patient states the redness is moving away from the center of the area of abscess. Patient denies any fever chills or night sweats. Patient states the area is warm to palpation and tender. Patient is unsure of his last A1c. Patient denies allergies to medications aside from levo floxacin. Remaining ROS (-). Upon arrival patient HR elevated, afebrile. He does not appear overtly toxic. - Related Data Home Medications Medication Instructions Recorded Confirmed Gemfibrozil [Lopid] 600 mg PO AC-BID 08/20/18 01/09/19 Lisinopril [Zestril] 2.5 mg PO DAILY 08/20/18 01/09/19 metFORMIN HCL [Glucophage] 500 mg PO BID 08/20/18 01/09/19 Albuterol Nebulized [Ventolin 2.5 mg INHALATION RT-TID PRN 01/09/19 01/09/19 Nebulized] Ergocalciferol (Vitamin D2) 50,000 unit PO MOFR 01/09/19 01/09/19 [Vitamin D2] Mometasone/Formoterol [Dulera 100 2 puff INHALATION RT-BID 01/09/19 01/09/19 Mcg/5 Mcg Inhaler] Nicotine 21Mg/24Hr Patch [Habitrol 1 patch TRANSDERM DAILY 01/09/19 01/09/19 21Mg/24Hr Patch] Allergies Allergy/AdvReac Type Severity Reaction Status Date / Time bee venom protein (honey bee) Allergy Anaphylaxis Verified 01/09/19 20:11 levofloxacin [From Levaquin] Allergy Anaphylaxis Verified 01/09/19 20:11 Review of Systems ROS Statement: Those systems with pertinent positive or pertinent negative responses have been documented in the HPI. ROS Other: All systems not noted in ROS Statement are negative. Past Medical History Past Medical History: Diabetes Mellitus, GERD/Reflux, Hyperlipidemia, Hypertension, Osteoarthritis (OA), Sleep Apnea/CPAP/BIPAP Additional Past Medical History / Comment(s): NIDDM type II, bronchitis, LILIANA with Cpap, bilateral tinnitis, arthritis bilateral knees (R knee worse) and hands, carpal tunnel syndrome bilaterally, migraines. History of Any Multi-Drug Resistant Organisms: None Reported Past Surgical History: Hernia Repair, Orthopedic Surgery Additional Past Surgical History / Comment(s): Umbilical hernia repair, R hand surgery d/t degloving when 9 year old, EGD, colonoscopy with benign polypectomies. Past Anesthesia/Blood Transfusion Reactions: No Reported Reaction Past Psychological History: No Psychological Hx Reported Smoking Status: Current every day smoker Past Alcohol Use History: Daily Past Drug Use History: Marijuana - Past Family History Father Additional Family Medical History / Comment(s): Pt does not know father's medical history, he recently reestablished contact with his father. Mother Family Medical History: Vascular Disorder Additional Family Medical History / Comment(s): Mother from a brain aneurysm at the age of 62 yrs. General Exam - General Exam Comments Initial Comments: General: The patient is awake and alert, in no distress, and does not appear acutely ill. Eye: Pupils are equal, round and reactive to light, extra-ocular movements are intact. No nystagmus. There is normal conjunctiva bilaterally. No signs of icterus. Ears, nose, mouth and throat: There are moist mucous membranes and no oral lesions. Neck: The neck is supple, there is no tenderness or JVD. Cardiovascular: There is a regular rate and rhythm. No murmur, rub or gallop is appreciated. Respiratory: Lungs are clear to auscultation, respirations are non-labored, breath sounds are equal. No wheezes, stridor, rales, or rhonchi. Musculoskeletal: Normal ROM, no tenderness. Strength 5/5. Sensation intact. Pulses equal bilaterally 2+. Neurological: A&O x 3. CN II-XII intact, There are no obvious motor or sensory deficits. Coordination appears grossly intact. Speech is normal. Skin: Skin is warm and dry and no rashes. Abscess that is open and draining of the left upper inner thigh, there is diffuse induration and erythema surrounding the abscess and drainage is purulent. Very tender to palpation. No involvement of scrotum or perineal region. Psychiatric: Cooperative, appropriate mood & affect, normal judgment. Limitations: no limitations Course Vital Signs 01/09/19 01/09/19 18:14 20:02 Temperature 98.8 F Pulse Rate 113 H 79 Respiratory 20 81 H Rate Blood Pressure 147/89 139/77 O2 Sat by Pulse 94 L 96 Oximetry Medical Decision Making - Medical Decision Making 48-year-old male history of diabetes presenting for left upper thigh abscess. There is a pretty significant abscess with purulent drainage surrounding erythema with induration. No crepitus to palpation of the skin. CT reveals no gas in the tissues. No collection of fluid at this time. Patient lanced incision at home. It appears that the area is not healing is likely secondary to patient's uncontrolled diabetes. Blood glucose greater than 500 in the emergency department. Patient takes metformin twice a day. Patient was given insulin and IV fluids in the emergency department. Acetone negative serum. Gap 13. Patient does not appear in DKA. Patient is afebrile. Does not appear toxic or septic. Patient has no leukocytosis. Patient was evaluated in person by attending provider Dr. Lora. Given the extent the patient's abscess and cellulitis with uncontrolled blood glucose refill patient should be admitted for IV antibiotics, pain control and management of diabetes. Dr. LIANET Krause spoke with the admitting provider Dr. Banks who accepted admission. Patient is transferred to the floor in stable condition he is aware of laboratory studies and is agreeable to admission. - Lab Data Result diagrams: 01/09/19 18:42 01/09/19 18:42 Lab Results 01/09/19 01/09/19 01/09/19 Range/Units 18:42 18:42 18:42 WBC 10.6 (3.8-10.6) k/uL RBC 5.74 (4.30-5.90) m/uL Hgb 16.5 (13.0-17.5) gm/dL Hct 49.4 (39.0-53.0) % MCV 86.0 (80.0-100.0) fL MCH 28.7 (25.0-35.0) pg MCHC 33.4 (31.0-37.0) g/dL RDW 12.9 (11.5-15.5) % Plt Count 274 (150-450) k/uL Neutrophils % 60 % Lymphocytes % 30 % Monocytes % 3 % Eosinophils % 4 % Basophils % 0 % Neutrophils # 6.4 (1.3-7.7) k/uL Lymphocytes # 3.2 (1.0-4.8) k/uL Monocytes # 0.4 (0-1.0) k/uL Eosinophils # 0.5 (0-0.7) k/uL Basophils # 0.0 (0-0.2) k/uL Sodium 134 L (137-145) mmol/L Potassium 4.6 (3.5-5.1) mmol/L Chloride 103 (98-107) mmol/L Carbon Dioxide 18 L (22-30) mmol/L Anion Gap 13 mmol/L BUN 10 (9-20) mg/dL Creatinine 0.69 (0.66-1.25) mg/dL Est GFR (CKD-EPI)AfAm >90 (>60 ml/min/1.73 sqM) Est GFR (CKD-EPI)NonAf >90 (>60 ml/min/1.73 sqM) Glucose 529 H* (74-99) mg/dL POC Glucose (mg/dL) (75-99) mg/dL POC Glu [employer] Att[employer] Supervisor ID Plasma Lactic Acid Bart 2.6 H* (0.7-2.0) mmol/L Calcium 9.7 (8.4-10.2) mg/dL Total Bilirubin 0.5 (0.2-1.3) mg/dL AST 28 (17-59) U/L ALT 40 (21-72) U/L Alkaline Phosphatase 150 H (38-126) U/L Total Protein 7.4 (6.3-8.2) g/dL Albumin 4.5 (3.5-5.0) g/dL Acetone, Qual (Negative) 01/09/19 01/09/19 Range/Units 18:42 20:44 WBC (3.8-10.6) k/uL RBC (4.30-5.90) m/uL Hgb (13.0-17.5) gm/dL Hct (39.0-53.0) % MCV (80.0-100.0) fL MCH (25.0-35.0) pg MCHC (31.0-37.0) g/dL RDW (11.5-15.5) % Plt Count (150-450) k/uL Neutrophils % % Lymphocytes % % Monocytes % % Eosinophils % % Basophils % % Neutrophils # (1.3-7.7) k/uL Lymphocytes # (1.0-4.8) k/uL Monocytes # (0-1.0) k/uL Eosinophils # (0-0.7) k/uL Basophils # (0-0.2) k/uL Sodium (137-145) mmol/L Potassium (3.5-5.1) mmol/L Chloride (98-107) mmol/L Carbon Dioxide (22-30) mmol/L Anion Gap mmol/L BUN (9-20) mg/dL Creatinine (0.66-1.25) mg/dL Est GFR (CKD-EPI)AfAm (>60 ml/min/1.73 sqM) Est GFR (CKD-EPI)NonAf (>60 ml/min/1.73 sqM) Glucose (74-99) mg/dL POC Glucose (mg/dL) 345 H (75-99) mg/dL POC Glu [employer] Att[employer] Supervisor ID Alex Nichols Plasma Lactic Acid Bart (0.7-2.0) mmol/L Calcium (8.4-10.2) mg/dL Total Bilirubin (0.2-1.3) mg/dL AST (17-59) U/L ALT (21-72) U/L Alkaline Phosphatase (38-126) U/L Total Protein (6.3-8.2) g/dL Albumin (3.5-5.0) g/dL Acetone, Qual Negative (Negative) Disposition Clinical Impression: Cellulitis and abscess of leg, Elevated lactic acid level, Blood glucose elevated Disposition: ADMITTED IP TO THIS [facility] Condition: Stable Is patient prescribed a controlled substance at d/c from ED?: No Referrals: Venice Estevez MD [Primary Care Provider] - 1-2 days Time of Disposition: 21:13 Decision to Admit Reason: Admit from EC Decision Date: 01/09/19 Decision Time: 21:13
[2019-01-09] MEDS ORDERED: SODIUM CHLORIDE 0.9% 1,000 ML IV ONE (18:36)
[2019-01-09] MEDS ORDERED: CLINDAMYCIN 600 MG in DEXTROSE 5% IN WATER 50 ML IVPB STA ×2 (18:39)
[2019-01-09 19:03] LABS: Basophils % (A) 0 %; Eosinophils # (A) 0.5 k/uL (0-0.7); Eosinophils % (A) 4 %; HCT 49.4 % (39.0-53.0); HGB 16.5 gm/dL (13.0-17.5); Lymphocytes # (A) 3.2 k/uL (1.0-4.8); Lymphocytes % (A) 30 %; MCH 28.7 pg (25.0-35.0); MCHC 33.4 g/dL (31.0-37.0); Mean Platelet Volume 7.3; Monocytes # (A) 0.4 k/uL (0-1.0); Monocytes % (A) 3 %; Neutrophils # (A) 6.4 k/uL (1.3-7.7); Neutrophils % (A) 60 %; Platelet Count 274 k/uL (150-450); RBC 5.74 m/uL (4.30-5.90); RDW 12.9 % (11.5-15.5); WBC 10.6 k/uL (3.8-10.6)
[2019-01-09 19:16] LABS: ALT 40 U/L (21-72); AST 28 U/L (17-59); African American GFR (CKD) >90 (>60 ml/min/1.73 sqM); Albumin 4.5 g/dL (3.5-5.0); Alkaline Phosphatase 150 U/L (38-126); Anion Gap 13 mmol/L; Blood Urea Nitrogen 10 mg/dL (9-20); Calcium 9.7 mg/dL (8.4-10.2); Carbon Dioxide 18 mmol/L (22-30); Chloride 103 mmol/L (98-107); Potassium 4.6 mmol/L (3.5-5.1); Sodium 134 mmol/L (137-145); Total Bilirubin 0.5 mg/dL (0.2-1.3); Total Protein 7.4 g/dL (6.3-8.2)
[2019-01-09 19:28] LABS: Glucose 529 mg/dL (74-99)
[2019-01-09] MEDS ORDERED: SODIUM CHLORIDE 0.9% 500 ML 500 ML IV ONE (19:30)
[2019-01-09] MEDS ORDERED: INSULIN REGULAR 100 UNIT/ML VIAL SQ ONE (19:51)
--- NOTE | 2019-01-09 20:11 | CT ---
EXAMINATION TYPE: CT pelvis w con DATE OF EXAM: 01/09/2019 COMPARISON: CT abdomen and pelvis September 29, 2013 HISTORY: Large abscess LT upper thigh. Pt hx diabetes. Pt claustrophobic, unable to complete delay CT DLP: 824.2 mGycm Automated exposure control for dose reduction was used. CONTRAST: Performed with IV Contrast, patient injected with 100 mL of Isovue 300. FINDINGS: Visualized bowel shows no suspicious dilatation. Normal-appearing appendix is seen from the cecum in the right upper pelvis. Prostate gland is normal in size with adjacent phlebolith. Bladder is felt wi thin normal limits. There is heterogeneous ill-defined fluid and fat stranding medial upper left thigh axial image 59 and coronal image 59 consistent with soft tissue infection or cellulitis. No well-formed drainable fluid collection is seen. Mild adjacent skin thickening is noted. Muscle bulk bilateral thighs is symmetric and within normal limits. Visualized osseous structures are intact. IMPRESSION: Small area of soft tissue infection or cellulitis upper medial left thigh without well-fo rmed drainable fluid collection or abscess or subcutaneous air noted.
[2019-01-09] MEDS ORDERED: MORPHINE SULFATE 4 MG/ML SYRINGE IVP STA (20:34)
[2019-01-09 20:47] LABS: Glucose,Whole Blood 345 mg/dL (75-99)
[2019-01-09] MEDS ORDERED: NALOXONE 0.4 MG/ML 1 ML VIAL IV PRN (21:08)
[2019-01-09] MEDS ORDERED: cefTRIAXone IN SWFI 1,000 MG/10 ML SYRINGE IVP STA (21:11)
[2019-01-09] MEDS: SODIUM CHLORIDE 0.9% 1,000 ML IV SCH (21:29)
[2019-01-09 22:10] LABS: Appearance,Urine Clear (Clear); Bilirubin,Urine Negative (Negative); Blood,Urine Negative (Negative); Color,Urine Light Yellow; Glucose,Urine (UA) 4+ (Negative); Ketones,Urine Negative (Negative); Leukocyte Esterase,Urine Negative (Negative); Nitrite,Urine Negative (Negative); Protein,Urine Negative (Negative); Urobilinogen,Urine <2.0 mg/dL (<2.0)
[2019-01-10] MEDS: IBUPROFEN 400 MG TAB PO PRN ×3 (01:01→20:25)
[2019-01-10 07:24] LABS: Glucose,Whole Blood 250 mg/dL (75-99)
[2019-01-10] MEDS: SODIUM CHLORIDE 0.9% 1,000 ML IV SCH ×2 (07:33→17:49)
[2019-01-10] MEDS ORDERED: VANCOMYCIN IV PER PHARMACY 1 EACH MISC MISCELLANE PRN (08:36)
[2019-01-10] MEDS ORDERED: VANCOMYCIN 2,000 MG in SODIUM CHLORIDE 0.9% 500 ML 500 ML IVPB ONE (09:00)
[2019-01-10] MEDS: INSULIN ASPART (NovoLOG) 100 UNIT/ML VIAL SQ SCH ×4 (09:01→20:26)
[2019-01-10] MEDS: HYDROcodone/APAP 5-325MG 1 EACH TAB PO PRN ×2 (09:01→16:15)
[2019-01-10] MEDS: FENOFIBRATE 160 MG TAB PO SCH (09:01)
[2019-01-10] MEDS: NICOTINE 21MG/24HR PATCH TRANSDERM SCH (09:01)
[2019-01-10] MEDS: LISINOPRIL 2.5 MG TAB PO SCH (09:01)
[2019-01-10] MEDS: ALBUTEROL NEBULIZED 2.5 MG/3 ML INHALATION PRN (10:58)
[2019-01-10] MEDS ORDERED: ERGOCALCIFEROL 50,000 UNIT CAP PO SCH (12:00)
[2019-01-10 12:17] LABS: Glucose,Whole Blood 198 mg/dL (75-99)
[2019-01-10 15:24] VITALS: BMI 37.8
[2019-01-10] MEDS: VANCOMYCIN 1,750 MG in SODIUM CHLORIDE 0.9% 500 ML 500 ML IVPB SCH ×2 (16:15→23:09)
[2019-01-10 17:21] LABS: Glucose,Whole Blood 214 mg/dL (75-99)
[2019-01-10] MEDS: SYMBICORT 80-4.5 MCG INHALER INHALATION SCH (19:22)
[2019-01-10 20:09] LABS: Glucose,Whole Blood 302 mg/dL (75-99)
[2019-01-10] MEDS: INSULIN DETEMIR (LEVEMIR) 100 UNIT/ML SYR SQ SCH (20:26)
--- NOTE | 2019-01-10 21:37 | P.HPIM ---
History of Present Illness H&P Date: 01/10/19 Chief Complaint: Left groin abscess Patient is a 48-year-old male with a known history of diabetes type 2 [id number], hypertension, hyperlipidemia and obstructive sleep apnea and morbid obesity presents to ER with complaints of abscess on the left upper side. Patient says that he noticed a small partial/ingrowing hair about 2 weeks ago which has been getting bigger. Patient says that his attempted to pop it open 2 days ago and since then is getting red and sore area with increased pain. He states has been growing in size. Patient states it is expressing purulent drainage. Patient states the redness is moving away from the center of the area of abscess. Patient denies any fever chills or night sweats. Patient states the area is warm to palpation and tender. Denied any chest pain or shortness of breath. Patient does take Bactrim at home which has been present from his old prescription. No nausea vomiting or diarrhea. No recent illnesses. Patient was given a dose of ceftriaxone and clindamycin in the ER. Patient is ALLERGIC to levofloxacin. CT pelvis showed a small area of soft tissue infection or cellulitis upper medial thigh with out well formed drainable fluid collection or abscess. Blood sugar 529 Lactic acid 2.6, acetone negative, WBC 10.6 Review of Systems Constitutional: Patient denies any fever or chills . No generalized weakness or weight loss. Abdomen: Patient denied nausea vomiting and diarrhea and abdominal pain. Cardiovascular: Patient denies any chest pain or short of breath no palpitations. Respiratory: patient denied any cough is from production. No shortness of breath Neurologic: Patient denied any numbness or tingling headache. Musculoskeletal: Patient denies any complaints of joint swelling or deformity. Left upper side abscess with pain and swelling Skin: Negative Psychiatric: Negative Endocrine: No heat or cold intolerance. No recent weight gain. Genitourinary: No dysuria or hematuria. All other 14 point ROS negative except the above Past Medical History Past Medical History: Diabetes Mellitus, GERD/Reflux, Hyperlipidemia, Hypertension, Osteoarthritis (OA), Sleep Apnea/CPAP/BIPAP Additional Past Medical History / Comment(s): NIDDM type II, bronchitis, LILIANA with Cpap, bilateral tinnitis, arthritis bilateral knees (R knee worse) and hands, carpal tunnel syndrome bilaterally, migraines. History of Any Multi-Drug Resistant Organisms: None Reported Past Surgical History: Hernia Repair, Orthopedic Surgery Additional Past Surgical History / Comment(s): Umbilical hernia repair, R hand surgery d/t degloving when 9 year old, EGD, colonoscopy with benign polypectomies. Past Anesthesia/Blood Transfusion Reactions: No Reported Reaction Past Psychological History: No Psychological Hx Reported Additional Psychological History / Comment(s): Pt resides with his spouse and 3 adult services librarian children and at times they have 5 children in the house. 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 He uses a cane to ambulate. Pt states lately his stress level has been very high d/t dealings with exspouse. He states his spouse recently misscarried as well. Smoking Status: Current every day smoker Past Alcohol Use History: Daily Additional Past Alcohol Use History / Comment(s): Pt started smoking in 1977 and is a ppd smoker. Past Drug Use History: Marijuana Additional Drug Use History / Comment(s): Pt occasionally smokes marijuana for pain. - Past Family History Father Additional Family Medical History / Comment(s): Pt does not know father's medical history, he recently reestablished contact with his father. Mother Family Medical History: Vascular Disorder Additional Family Medical History / Comment(s): Mother from a brain aneurysm at the age of 62 yrs. Medications and Allergies Home Medications Medication Instructions Recorded Confirmed Type Gemfibrozil [Lopid] 600 mg PO AC-BID 08/20/18 01/09/19 History Lisinopril [Zestril] 2.5 mg PO DAILY 08/20/18 01/09/19 History metFORMIN HCL [Glucophage] 500 mg PO BID 08/20/18 01/09/19 History Albuterol Nebulized [Ventolin 2.5 mg INHALATION RT-TID PRN 01/09/19 01/09/19 History Nebulized] Ergocalciferol (Vitamin D2) 50,000 unit PO MOFR 01/09/19 01/09/19 History [Vitamin D2] Mometasone/Formoterol [Dulera 100 2 puff INHALATION RT-BID 01/09/19 01/09/19 History Mcg/5 Mcg Inhaler] Nicotine 21Mg/24Hr Patch [Habitrol 1 patch TRANSDERM DAILY 01/09/19 01/09/19 History 21Mg/24Hr Patch] Allergies Allergy/AdvReac Type Severity Reaction Status Date / Time bee venom protein (honey bee) Allergy Anaphylaxis Verified 01/09/19 20:11 levofloxacin [From Levaquin] Allergy Anaphylaxis Verified 01/09/19 20:11 Physical Exam Vitals: Vital Signs Temp Pulse Pulse Resp BP BP Pulse Ox 01/10/19 06:29 97.6 F 58 L 16 133/88 98 01/09/19 22:08 97.7 F 88 22 145/95 96 01/09/19 21:20 150/88 97 01/09/19 21:10 150/88 94 L 01/09/19 21:00 135/94 97 01/09/19 20:50 135/94 96 01/09/19 20:40 84 18 135/94 95 01/09/19 20:30 139/77 95 01/09/19 20:20 139/77 99 01/09/19 20:10 139/77 94 L 01/09/19 20:02 79 81 H 139/77 96 01/09/19 20:00 145/84 94 L 01/09/19 19:55 95 01/09/19 18:14 98.8 F 113 H 20 147/89 94 L Intake and Output 01/09/19 01/10/19 01/10/19 22:59 06:59 14:59 Other: # Voids 1 Weight 116.12 kg PHYSICAL EXAMINATION: Patient is lying in the bed comfortably, no acute distress, awake alert and oriented.. HEENT: Normocephalic. Neck is supple. Pupils reactive. Nostrils clear. Oral cavity is moist. Ears reveal no drainage. Neck reveals no JVD, carotid bruits, or thyromegaly. CHEST EXAMINATION: Trachea is central. Symmetrical expansion. Lung minor clear to auscultation and percussion. CARDIAC: Normal S1, S2 with no gallops. No murmurs ABDOMEN: Soft. Bowel sounds normal. No organomegaly. No abdominal bruits. Left upper medial thigh abscess with surrounding cellulitis and minimal purulent drainage. Extremities: reveal no edema. No clubbing or cyanosis Neurologically awake, alert, oriented x3 with well-coordinated movements. No focal deficits noted Skin: No rash or skin lesions. Psychiatric: Coperative. Nonsuicidal Musculoskeletal: No joint swelling or deformity. Normal range of motion. Results CBC & Chem 7: 01/09/19 18:42 06/16/19 18:42 Labs: Abnormal Lab Results - Last 24 Hours (Table) 01/09/19 01/09/19 01/09/19 Range/Units 18:42 18:42 20:44 Sodium 134 L (137-145) mmol/L Carbon Dioxide 18 L (22-30) mmol/L Glucose 529 H* (74-99) mg/dL POC Glucose (mg/dL) 345 H (75-99) mg/dL Plasma Lactic Acid Bart 2.6 H* (0.7-2.0) mmol/L Alkaline Phosphatase 150 H (38-126) U/L Ur Specific Crane (1.001-1.035) Urine Glucose (UA) (Negative) 01/09/19 01/10/19 Range/Units 22:00 07:21 Sodium (137-145) mmol/L Carbon Dioxide (22-30) mmol/L Glucose (74-99) mg/dL POC Glucose (mg/dL) 250 H (75-99) mg/dL Plasma Lactic Acid Bart (0.7-2.0) mmol/L Alkaline Phosphatase (38-126) U/L Ur Specific Crane 1.050 H (1.001-1.035) Urine Glucose (UA) 4+ H (Negative) Thrombosis Risk Factor Assmnt - DVT/VTE Prophylaxis DVT/VTE Prophylaxis: Pharmacologic Prophylaxis ordered - Choose All That Apply Any of the Below Risk Factors Present?: Yes Each Factor Represents 1 point: Age 41-60 years, Obesity (BMI >25) Other Risk Factors: No Thrombosis Risk Factor Assessment Total Risk Factor Score: 2 Thrombosis Risk Factor Assessment Level: Low Risk Assessment and Plan Assessment: Left medial upper thigh abscess with surrounding cellulitis Hyperglycemia with uncontrolled diabetes type 2 his B A1c 12 Obstructive sleep apnea on CPAP at home Hypertension Hyperlipidemia GERD Osteoarthritis Morbid obesity BMI 37.8 Nicotine addiction History of marijuana use Carpal tunnel syndrome and history of migraine DVT prophylaxis Plan: Patient will be continued on antibiotics in the form of vancomycin. Follow-up wound culture reports. Patient will be started on Levemir and NovoLog along with sliding scale. Continue the home medications and follow closely. Other recommendations based on the clinical course. Smoking cessation has been counseled extensively. Time with Patient: Greater than 30
[2019-01-11] MEDS: SODIUM CHLORIDE 0.9% 1,000 ML IV SCH ×3 (02:00→22:29)
[2019-01-11] MEDS: HYDROcodone/APAP 5-325MG 1 EACH TAB PO PRN (04:36)
[2019-01-11 07:17] LABS: Glucose,Whole Blood 215 mg/dL (75-99)
[2019-01-11] MEDS: SYMBICORT 80-4.5 MCG INHALER INHALATION SCH ×2 (07:18→20:55)
[2019-01-11] MEDS: LISINOPRIL 2.5 MG TAB PO SCH (07:37)
[2019-01-11] MEDS: NICOTINE 21MG/24HR PATCH TRANSDERM SCH (07:37)
[2019-01-11] MEDS: FENOFIBRATE 160 MG TAB PO SCH (07:37)
[2019-01-11] MEDS: INSULIN ASPART (NovoLOG) 100 UNIT/ML VIAL SQ SCH ×7 (07:37→20:25)
[2019-01-11] MEDS: VANCOMYCIN 1,750 MG in SODIUM CHLORIDE 0.9% 500 ML 500 ML IVPB SCH (07:38)
[2019-01-11 11:53] LABS: Glucose,Whole Blood 155 mg/dL (75-99)
[2019-01-11] MEDS: HYDROCORTISONE SUPPOSITORY 25 MG SUPP RECTAL SCH ×2 (12:28→20:24)
[2019-01-11] MEDS: ACETAMINOPHEN TAB 325 MG TAB PO PRN (12:58)
[2019-01-11] MEDS: ceFAZolin IN SWFI 2 GM/20 ML SYRINGE IVP SCH ×2 (15:20→22:30)
[2019-01-11] MEDS ORDERED: ceFAZolin 3 GM in SODIUM CHLORIDE 0.9% 100 ML IVPB SCH (16:00)
[2019-01-11 16:24] LABS: African American GFR (CKD) >90 (>60 ml/min/1.73 sqM)
[2019-01-11 16:44] LABS: Glucose,Whole Blood 181 mg/dL (75-99)
[2019-01-11 20:17] LABS: Glucose,Whole Blood 225 mg/dL (75-99)
[2019-01-11] MEDS: INSULIN DETEMIR (LEVEMIR) 100 UNIT/ML SYR SQ SCH (20:25)
--- NOTE | 2019-01-12 00:04 | P.PN ---
Subjective Progress Note Date: 01/11/19 Principal diagnosis: Left upper thigh abscess and cellulitis Hyperglycemia with uncontrolled diabetes type 2 Patient is a 48-year-old male with a known history of diabetes type 2 [id number], hypertension, hyperlipidemia and obstructive sleep apnea and morbid obesity presents to ER with complaints of abscess on the left upper side. Patient says that he noticed a small partial/ingrowing hair about 2 weeks ago which has been getting bigger. Patient says that his attempted to pop it open 2 days ago and since then is getting red and sore area with increased pa in. He states has been growing in size. Patient states it is expressing purulent drainage. Patient states the redness is moving away from the center of the area of abscess. Patient denies any fever chills or night sweats. Patient states the area is warm to palpation and tender. Denied any chest pain or shortness of breath. Patient does take Bactrim at home which has been present from his old prescription. No nausea vomiting or diarrhea. No recent illnesses. Patient was given a dose of ceftriaxone and clindamycin in the ER. Patient is ALLERGIC to levofloxacin. CT pelvis showed a small area of soft tissue infection or cellulitis upper medial thigh with out well formed drainable fluid collection or abscess. Blood sugar 529 Lactic acid 2.6, acetone negative, WBC 10.6 01/11/2019 Left upper thigh redness and pain is improving. Still induration and tenderness is present with purulent drainage. Wound culture showed strep agalactiae. Antibiotics have been changed to cefazolin IV. Vancomycin has been discontinued. Otherwise blood sugars are still elevated. Patient will be continued on Levemir and NovoLog along with insulin sliding scale. Continue with metformin as well. His B A1c is 12. Patient was recommended to start on insulin dosing. 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 Patient has been counseled extensively. No fever no chills. No nausea vomiting or abdominal pain. No diarrhea no dysuria. Current medications reviewed. Objective - Vital Signs Vital signs: Vital Signs Temp 98.0 F 01/11/19 13:23 Pulse 74 01/11/19 13:23 Resp 16 01/11/19 15:44 BP 133/86 01/11/19 13:23 Pulse Ox 95 06/18/19 13:23 Intake & Output 01/11/19 01/11/19 01/12/19 06:59 18:59 06:59 Other: # Voids 3 3 - Exam PHYSICAL EXAMINATION: Patient is lying in the bed comfortably, no acute distress, awake alert and oriented.. HEENT: Normocephalic. Neck is supple. Pupils reactive. Nostrils clear. Oral cavity is moist. Ears reveal no drainage. Neck reveals no JVD, carotid bruits, or thyromegaly. CHEST EXAMINATION: Trachea is central. Symmetrical expansion. Lung minor clear to auscultation and percussion. CARDIAC: Normal S1, S2 with no gallops. No murmurs ABDOMEN: Soft. Bowel sounds normal. No organomegaly. No abdominal bruits. Left upper medial thigh abscess with surrounding cellulitis and minimal purulent drainage. Extremities: reveal no edema. No clubbing or cyanosis Neurologically awake, alert, oriented x3 with well-coordinated movements. No focal deficits noted Skin: No rash or skin lesions. Psychiatric: Coperative. Nonsuicidal Musculoskeletal: No joint swelling or deformity. Normal range of motion. - Labs CBC & Chem 7: 01/09/19 18:42 01/11/19 15:39 Labs: Abnormal Lab Results - Last 24 Hours (Table) 01/11/19 01/11/19 01/11/19 Range/Units 07:14 11:49 15:39 Creatinine 0.52 L (0.66-1.25) mg/dL POC Glucose (mg/dL) 215 H 155 H (75-99) mg/dL 01/11/19 01/11/19 Range/Units 16:41 20:15 Creatinine (0.66-1.25) mg/dL POC Glucose (mg/dL) 181 H 225 H (75-99) mg/dL Microbiology - Last 24 Hours (Table) 01/10/19 09:20 Gram Stain - Preliminary Thigh - Left Wound Culture - Preliminary Strep agalactiae - (group b) 01/09/19 18:42 Blood Culture - Preliminary Blood No Growth after 24 hours Assessment and Plan Assessment: Left medial upper thigh abscess with surrounding cellulitis Hyperglycemia with uncontrolled diabetes type 2 his B A1c 12 Obstructive sleep apnea on CPAP at home Hypertension Hyperlipidemia GERD Osteoarthritis Morbid obesity BMI 37.8 Nicotine addiction History of marijuana use Carpal tunnel syndrome and history of migraine DVT prophylaxis Plan: Patient will be continued on antibiotics in the form of vancomycin. Eventually changed to cefazolin due to wound cultures growing streptococcal agalactiae. Patient was started on Levemir and NovoLog along with sliding scale. Continue the home medications and follow closely. Other recommendations based on the clinical course. Smoking cessation has been counseled extensively. Time with Patient: Greater than 30
[2019-01-12 07:10] LABS: Glucose,Whole Blood 198 mg/dL (75-99)
[2019-01-12] MEDS: FENOFIBRATE 160 MG TAB PO SCH (07:36)
[2019-01-12] MEDS: LISINOPRIL 2.5 MG TAB PO SCH (07:36)
[2019-01-12] MEDS: INSULIN ASPART (NovoLOG) 100 UNIT/ML VIAL SQ SCH ×4 (07:36→13:11)
[2019-01-12] MEDS: HYDROCORTISONE SUPPOSITORY 25 MG SUPP RECTAL SCH (07:36)
[2019-01-12] MEDS: NICOTINE 21MG/24HR PATCH TRANSDERM SCH (07:36)
[2019-01-12] MEDS: ceFAZolin IN SWFI 2 GM/20 ML SYRINGE IVP SCH (07:39)
[2019-01-12] MEDS: SODIUM CHLORIDE 0.9% 1,000 ML IV SCH (07:40)
[2019-01-12] MEDS: ACETAMINOPHEN TAB 325 MG TAB PO PRN (07:45)
[2019-01-12] MEDS: ALBUTEROL NEBULIZED 2.5 MG/3 ML INHALATION PRN (07:51)
[2019-01-12] MEDS: SYMBICORT 80-4.5 MCG INHALER INHALATION SCH (07:51)
[2019-01-12 12:25] LABS: Glucose,Whole Blood 146 mg/dL (75-99)
[2019-01-12 13:13] VITALS: BP 145/84; PULSE 81; RESP 18; TEMP 98.6
== END 2019-01-12 15:07 | disposition home or self-care (01) | DRG 603 ==
LOC: EC 18:08 → 4MS4W 21:08 → OBSVTOIN 01-11 10:52
PROVIDERS: ADMIT Hospitalist; ATTEND Hospitalist
PROC: 05HF33Z Insertion of Infusion Device into Left Cephalic Vein, Percutaneous Approach (ICD-10-PCS; principal; 2019-01-11 13:40)
DX: L02.416 Cutaneous abscess of left lower limb (principal); L03.116 Cellulitis of left lower limb; E11.65 Type 2 diabetes mellitus with hyperglycemia; E66.01 Morbid (severe) obesity due to excess calories; E78.5 Hyperlipidemia, unspecified; F17.210 Nicotine dependence, cigarettes, uncomplicated; G47.33 Obstructive sleep apnea (adult) (pediatric); G56.00 Carpal tunnel syndrome, unspecified upper limb; I10 Essential (primary) hypertension; K21.9 Gastro-esophageal reflux disease without esophagitis; M17.0 Bilateral primary osteoarthritis of knee; G43.909 Migraine, unspecified, not intractable, without status migrainosus; G56.03 Carpal tunnel syndrome, bilateral upper limbs; M19.042 Primary osteoarthritis, left hand; M19.041 Primary osteoarthritis, right hand; H93.13 Tinnitus, bilateral; Z68.37 Body mass index [BMI] 37.0-37.9, adult; Z79.51 Long term (current) use of inhaled steroids; Z79.84 Long term (current) use of oral hypoglycemic drugs; Z79.899 Other long term (current) drug therapy; Z88.1 Allergy status to other antibiotic agents; Z91.030 Bee allergy status; Z71.6 Tobacco abuse counseling
CPT/HCPCS: 36410; 36415; 72193; 76937; 80053; 81003; 82009; 82565; 83036; 83605; 85025; 87040; 87070; 87205; 94640; 96365; 96366; 96375; 99284

== ENCOUNTER 2020-09-08 21:17 | Emergency (ER) | payer OTHER ==
[2020-09-08] MEDS ORDERED: MORPHINE SULFATE 4 MG/ML SYRINGE IM STA (21:43)
[2020-09-08] MEDS ORDERED: CLINDAMYCIN 150 MG CAP PO STA (21:47)
--- NOTE | 2020-09-08 21:59 | ED ---
General Adult HPI - General Chief complaint: Dental/Oral Stated complaint: Dental pain Time Seen by Provider: 09/08/20 21:22 Source: patient, RN notes reviewed Mode of arrival: ambulatory Limitations: no limitations - History of Present Illness Initial comments: 50-year-old male with a past history of hyperlipidemia, hypertension, NIDDM presents to the emergency room for a chief complaint of dental pain. Patient states he has had right-sided dental pain for weeks. Patient reports he saw his dentist 2 days ago and started on amoxicillin 3 times a day. Patient states his pain has worsened. He states his face feels somewhat swollen now. Patient is taking Motrin and Tylenol without relief.Patient has no other complaints at this time including shortness of breath, chest pain, abdominal pain, nausea or vomiting, headache, or visual changes. - Related Data Home Medications Medication Instructions Recorded Confirmed gemfibroziL [Lopid] 600 mg PO AC-BID 08/20/18 01/09/19 lisinopriL [Zestril] 2.5 mg PO DAILY 08/20/18 01/09/19 metFORMIN HCL [Glucophage] 500 mg PO BID 08/20/18 01/09/19 Albuterol Nebulized [Ventolin 2.5 mg INHALATION RT-TID PRN 01/09/19 01/09/19 Nebulized] Ergocalciferol (Vitamin D2) 50,000 unit PO MOFR 01/09/19 01/09/19 [Vitamin D2] Mometasone/Formoterol [Dulera 100 2 puff INHALATION RT-BID 01/09/19 01/09/19 Mcg-5 Mcg Inhaler] Nicotine 21Mg/24Hr Patch [Habitrol] 1 patch TRANSDERM DAILY 01/09/19 01/09/19 Previous Rx's Medication Instructions Recorded Cephalexin [Keflex] 500 mg PO Q8HR 7 Days #21 cap 01/12/19 Hydrocortisone Suppository 25 mg RECTAL BID #10 supp 01/12/19 [Anusol-Hc] Insulin Glargine,Hum.rec.anlog 15 unit SQ HS #1 syr 01/12/19 [Basaglar Kwikpen U-100] Insulin Glulisine [Apidra Solostar] 5 unit SQ TID-W/MEALS #15 ml 01/12/19 Ibuprofen [Motrin] 600 mg PO Q8HR PRN #30 tab 08/30/19 Ondansetron [Zofran ODT] 4 mg PO Q8HR PRN #10 tab 08/30/19 Tamsulosin HCl [Flomax] 0.4 mg PO DAILY #7 cap 08/30/19 Clindamycin [Cleocin] 450 mg PO Q8H 7 Days #63 cap 09/08/20 HYDROcodone/APAP 5-325MG [[place] 1 tab PO Q6HR PRN #10 tab 09/08/20 5-325] Allergies Allergy/AdvReac Type Severity Reaction Status Date / Time bee venom protein (honey bee) Allergy Anaphylaxis Verified 09/08/20 21:21 levofloxacin [From Levaquin] Allergy Anaphylaxis Verified 09/08/20 21:21 Review of Systems ROS Statement: Those systems with pertinent positive or pertinent negative responses have been documented in the HPI. ROS Other: All systems not noted in ROS Statement are negative. Past Medical History Past Medical History: Diabetes Mellitus, GERD/Reflux, Hyperlipidemia, Hypertension, Osteoarthritis (OA), Sleep Apnea/CPAP/BIPAP Additional Past Medical History / Comment(s): NIDDM type II, bronchitis, LILIANA with Cpap, bilateral tinnitis, arthritis bilateral knees (R knee worse) and hands, carpal tunnel syndrome bilaterally, migraines. History of Any Multi-Drug Resistant Organisms: None Reported Past Surgical History: Hernia Repair, Orthopedic Surgery Additional Past Surgical History / Comment(s): Umbilical hernia repair, R hand surgery d/t degloving when 9 year old, EGD, colonoscopy with benign polypectomies. Past Anesthesia/Blood Transfusion Reactions: No Reported Reaction Past Psychological History: No Psychological Hx Reported Smoking Status: Current every day smoker Past Alcohol Use History: Daily Past Drug Use History: Marijuana - Past Family History Father Additional Family Medical History / Comment(s): Pt does not know father's medical history, he recently reestablished contact with his father. Mother Family Medical History: Vascular Disorder Additional Family Medical History / Comment(s): Mother from a brain aneurysm at the age of 62 yrs. General Exam Limitations: no limitations General appearance: alert Head exam: Present: atraumatic, normocephalic Eye exam: Present: normal appearance, PERRL, EOMI. Absent: scleral icterus ENT exam: Present: normal exam, mucous membranes moist. Absent: normal oropharynx (large cavity tooth 29. Tenderness to palpation of the tooth. No abscess found with palpation or direct visualization of the gumline), other (No sublingual edema. No facial edema) Neck exam: Present: normal inspection, full ROM. Absent: tenderness Respiratory exam: Present: normal lung sounds bilaterally. Absent: respiratory distress, wheezes Cardiovascular Exam: Present: regular rate, normal rhythm, normal heart sounds GI/Abdominal exam: Present: soft, normal bowel sounds. Absent: distended, tenderness, guarding, rebound, rigid Course Vital Signs 09/08/20 21:18 Temperature 97.8 F Pulse Rate 82 Respiratory 18 Rate Blood Pressure 183/99 O2 Sat by Pulse 98 Oximetry Medical Decision Making - Medical Decision Making Vitals are stable. Patient has a history of hypertension. High blood pressure today likely secondary to this history as well as pain. Patient does have a large cavity noted on tooth 29. There is no erythema or facial edema. There is no evidence of abscess. No sublingual edema. No trismus, patient able to fully open mouth. Patient denies any difficulty swallowing, handling secretions normally.Patient will be switched from amoxicillin to clindamycin. He reports he has been taking Motrin and Tylenol and it does not seem to be helping, we'll be given [place]. Patient will follow-up with his Dentist on Thursday. I discussed strict return parameters and patient is agreeable. Disposition Clinical Impression: Pain, dental Disposition: HOME SELF-CARE Instructions (If sedation given, give patient instructions): Toothache (ED) Additional Instructions: Please take clindamycin instead of amoxicillin. Please Alternate Motrin and Tylenol for pain. If pain is severe take [place] instead of Tylenol. Call your dentist on Thursday morning for an appointment. However if you develop any worsening symptoms such as difficulty opening the mouth, difficulty swallowing, fevers or any other worsening symptoms return immediately to the emergency room. Prescriptions: Clindamycin [Cleocin] 450 mg PO Q8H 7 Days #63 cap HYDROcodone/APAP 5-325MG [[place] 5-325] 1 tab PO Q6HR PRN #10 tab PRN Reason: Pain Is patient prescribed a controlled substance at d/c from ED?: Yes When asked, does pt state using other controlled substances?: No If prescribed controlled substance>3 days was MAPS reviewed?: Prescribed <3 Days If opioid is for acute pain is fill amount 7 days or less?: Yes If Rx opioid, was Start Talking consent form obtained?: Yes Referrals: Venice Estevez MD [Primary Care Provider] - 1-2 days Time of Disposition: 22:06
[2020-09-08 22:50] VITALS: BP 179/79; PULSE 71; RESP 16; TEMP 98.2
== END 2020-09-08 22:50 | disposition home or self-care (01) ==
LOC: EC 21:17
DX: K08.89 Other specified disorders of teeth and supporting structures (principal); I10 Essential (primary) hypertension; E11.9 Type 2 diabetes mellitus without complications; E78.5 Hyperlipidemia, unspecified; G47.33 Obstructive sleep apnea (adult) (pediatric); F17.200 Nicotine dependence, unspecified, uncomplicated; Z79.899 Other long term (current) drug therapy; Z79.84 Long term (current) use of oral hypoglycemic drugs; Z79.51 Long term (current) use of inhaled steroids; Z91.030 Bee allergy status; Z88.1 Allergy status to other antibiotic agents; Z99.89 Dependence on other enabling machines and devices
CPT/HCPCS: 99282; 96372; J2270

== ENCOUNTER 2021-04-22 10:25 | Outpatient (CLI) | payer OTHER ==
--- NOTE | 2021-04-22 11:41 | ED ---
URI HPI - General Chief Complaint: Upper Respiratory Infection Stated Complaint: SOB/cough/weak Time Seen by Provider: 04/22/21 11:39 Source: patient, RN notes reviewed Mode of arrival: ambulatory Limitations: no limitations - History of Present Illness Initial Comments: Patient is a 50-year-old male, with hx of DM, HTN, LILIANA, presenting to emergency Department with complaints of cough, congestion and headache starting yesterday. His and child has Covid at home, he is requesting testing today. His 2 other children are also here with similar complaints. He denies any short of breath, no chest pain. No abdominal pain, no nausea or vomiting, no diarrhea. He denies any fevers or chills at this time. Patient's vital signs are stable upon arrival. He has no further complaints. - Related Data Home Medications Medication Instructions Recorded Confirmed gemfibroziL [Lopid] 600 mg PO AC-BID 08/20/18 01/09/19 lisinopriL [Zestril] 2.5 mg PO DAILY 08/20/18 01/09/19 metFORMIN HCL [Glucophage] 500 mg PO BID 08/20/18 01/09/19 Albuterol Nebulized [Ventolin 2.5 mg INHALATION RT-TID PRN 01/09/19 01/09/19 Nebulized] Ergocalciferol (Vitamin D2) 50,000 unit PO MOFR 01/09/19 01/09/19 [Vitamin D2] Mometasone/Formoterol [Dulera 100 2 puff INHALATION RT-BID 01/09/19 01/09/19 Mcg-5 Mcg Inhaler] Nicotine 21Mg/24Hr Patch [Habitrol] 1 patch TRANSDERM DAILY 01/09/19 01/09/19 Previous Rx's Medication Instructions Recorded Cephalexin [Keflex] 500 mg PO Q8HR 7 Days #21 cap 01/12/19 Hydrocortisone Suppository 25 mg RECTAL BID #10 supp 01/12/19 [Anusol-Hc] Insulin Glargine,Hum.rec.anlog 15 unit SQ HS #1 syr 01/12/19 [Basaglar Kwikpen U-100] Insulin Glulisine [Apidra Solostar] 5 unit SQ TID-W/MEALS #15 ml 01/12/19 Ibuprofen [Motrin] 600 mg PO Q8HR PRN #30 tab 08/30/19 Ondansetron [Zofran ODT] 4 mg PO Q8HR PRN #10 tab 08/30/19 Tamsulosin HCl [Flomax] 0.4 mg PO DAILY #7 cap 08/30/19 Clindamycin [Cleocin] 450 mg PO Q8H 7 Days #63 cap 09/08/20 HYDROcodone/APAP 5-325MG [[place] 1 tab PO Q6HR PRN #10 tab 09/08/20 5-325] Allergies Allergy/AdvReac Type Severity Reaction Status Date / Time bee venom protein (honey bee) Allergy Anaphylaxis Verified 04/22/21 11:25 levofloxacin [From Levaquin] Allergy Anaphylaxis Verified 04/22/21 11:25 Review of Systems ROS Statement: Those systems with pertinent positive or pertinent negative responses have been documented in the HPI. ROS Other: All systems not noted in ROS Statement are negative. Past Medical History Past Medical History: Diabetes Mellitus, GERD/Reflux, Hyperlipidemia, Hypertension, Osteoarthritis (OA), Sleep Apnea/CPAP/BIPAP Additional Past Medical History / Comment(s): NIDDM type II, bronchitis, LILIANA with Cpap, bilateral tinnitis, arthritis bilateral knees (R knee worse) and hands, carpal tunnel syndrome bilaterally, migraines. History of Any Multi-Drug Resistant Organisms: None Reported Past Surgical History: Hernia Repair, Orthopedic Surgery Additional Past Surgical History / Comment(s): Umbilical hernia repair, R hand surgery d/t degloving when 9 year old, EGD, colonoscopy with benign polypectomies. Past Anesthesia/Blood Transfusion Reactions: No Reported Reaction Past Psychological History: No Psychological Hx Reported Smoking Status: Current every day smoker Past Alcohol Use History: Daily Past Drug Use History: Marijuana - Past Family History Father Additional Family Medical History / Comment(s): Pt does not know father's medical history, he recently reestablished contact with his father. Mother Family Medical History: Vascular Disorder Additional Family Medical History / Comment(s): Mother from a brain aneurysm at the age of 62 yrs. General Exam - General Exam Comments Initial Comments: GENERAL: Patient is well-developed and well-nourished. Patient is nontoxic and in no acute distress. HEAD: Atraumatic, normocephalic. EYES: Pupils equal round and reactive to light, extraocular movements intact, sclera anicteric, conjunctiva are normal. Eyelids were unremarkable. ENT: Nares patent, oropharynx clear without exudates. Moist mucous membranes. NECK: Normal range of motion, supple without lymphadenopathy or JVD. LUNGS: Unlabored respirations. Breath sounds clear to auscultation bilaterally and equal. No wheezes rales or rhonchi. HEART: Regular rate and rhythm without murmurs, rubs or gallops. ABDOMEN: Soft, nontender, normoactive bowel sounds. No guarding, no rebound. No masses appreciated. : Deferred MUSCULOSKELETAL: Normal extremities with adequate strength and normal range of motion, no pitting or edema. No clubbing or cyanosis. NEUROLOGICAL: Patient is alert and oriented x 3. SKIN: Warm, Dry, normal turgor, no rashes or lesions noted. Limitations: no limitations General appearance: alert, in no apparent distress Head exam: Present: atraumatic Eye exam: Present: normal appearance Course Vital Signs 04/22/21 04/22/21 04/22/21 11:20 13:21 14:30 Temperature 98.2 F Pulse Rate 93 73 Respiratory 18 17 18 Rate Blood Pressure 132/83 134/73 O2 Sat by Pulse 96 Oximetry 04/22/21 04/22/21 04/22/21 14:33 14:37 14:49 Temperature 98.7 F 97.8 F Pulse Rate 78 79 73 Respiratory 18 18 18 Rate Blood Pressure 137/73 148/72 134/73 O2 Sat by Pulse 97 Oximetry Medical Decision Making - Medical Decision Making Patient is a 50-year-old male with history of diabetes, hypertension, sleep apnea, presenting with cold-like symptoms since yesterday. His children also tested positive for Covid. His vital signs are stable, his exam is unremarkable. Patient's rapid test is positive today. He doesn't qualification's for monoclonal antibodies, he does agree to this. And will be discharged home, recommend taking Tylenol Motrin for fever and body aches. His return parameters were discussed with him and he verbalized understanding. Case discussed with Dr. Lora. - Lab Data Lab Results 04/22/21 Range/Units 11:40 Coronavirus (PCR) Detected A (Not Detectd) Disposition Clinical Impression: COVID-19 Disposition: HOME SELF-CARE Condition: Stable Instructions (If sedation given, give patient instructions): Coronavirus Disease 2019 (COVID-19) Additional Instructions: Please return to the Emergency Department if symptoms worsen or any other concerns. Recommend Tylenol and/or Motrin for fever or body aches. If symptoms worsen, return to the ER. Is patient prescribed a controlled substance at d/c from ED?: No Referrals: Venice Estevez MD [Primary Care Provider] - 1-2 days Time of Disposition: 14:05
[2021-04-22] MEDS ORDERED: CASIRIVIMAB/IMDEVIMAB (EUA) 1,200 MG in SODIUM CHLORIDE 0.9% 100 ML IVPB ONE (13:30)
[2021-04-22] MEDS ORDERED: IBUPROFEN 600 MG TAB PO STA (13:50)
[2021-04-22] MEDS ORDERED: SODIUM CHLORIDE 0.9% 50 ML IVPB ONE (14:00)
[2021-04-22 14:34] VITALS: RESP 18
[2021-04-22] MEDS ORDERED: SODIUM CHLORIDE 0.9% 500 ML 500 ML in EMPTY BAG 1 BAG IV PRN (14:35)
[2021-04-22 14:38] VITALS: TEMP 97.8
[2021-04-22 14:49] VITALS: BP 134/73; PULSE 73
== END 2021-04-22 13:50 ==
LOC: PROCWHC3 10:25 → EC 10:25 → PROCWHC3 13:50 → EDSTATUS 14:24
PROVIDERS: ATTEND Specialist/Technologist Athletic Trainer
DX: U07.1 COVID-19 (principal); I10 Essential (primary) hypertension; E11.9 Type 2 diabetes mellitus without complications; G47.33 Obstructive sleep apnea (adult) (pediatric); F12.90 Cannabis use, unspecified, uncomplicated; F17.200 Nicotine dependence, unspecified, uncomplicated
CPT/HCPCS: 99285; 96365; 96361; 87635; M0243 ×2; Q0243

== ENCOUNTER 2022-01-19 16:07 | Emergency (ER) | payer OTHER ==
[2022-01-19] MEDS ORDERED: SODIUM CHLORIDE 0.9% 1,000 ML IV STA (17:25)
--- NOTE | 2022-01-19 17:47 | ED ---
General Adult HPI - General Chief complaint: Dizziness Stated complaint: SOB/Blurred Vision/Headache/Dizziness Time Seen by Provider: 01/19/22 17:14 Source: patient, RN notes reviewed, old records reviewed Mode of arrival: ambulatory Limitations: no limitations - History of Present Illness Initial comments: 51-year-old male presenting for evaluation of lightheadedness, dizziness. Patient states his symptoms began prior to arrival. He had been outside exerting himself and became somewhat lightheaded. He did state that he recently started a new anxiety medication within the past several days. He had some mild associated dyspnea. No chest pain. No vomiting. No alcohol use. No focal numbness or weakness. He does report a mild headache. - Related Data Home Medications Medication Instructions Recorded Confirmed gemfibroziL [Lopid] 600 mg PO AC-BID 08/20/18 01/09/19 lisinopriL [Zestril] 2.5 mg PO DAILY 08/20/18 01/09/19 metFORMIN HCL [Glucophage] 500 mg PO BID 08/20/18 01/09/19 Albuterol Nebulized [Ventolin 2.5 mg INHALATION RT-TID PRN 01/09/19 01/09/19 Nebulized] Ergocalciferol (Vitamin D2) 50,000 unit PO MOFR 01/09/19 01/09/19 [Vitamin D2] Mometasone/Formoterol [Dulera 100 2 puff INHALATION RT-BID 01/09/19 01/09/19 Mcg-5 Mcg Inhaler] Nicotine 21Mg/24Hr Patch [Habitrol] 1 patch TRANSDERM DAILY 01/09/19 01/09/19 Previous Rx's Medication Instructions Recorded Cephalexin [Keflex] 500 mg PO Q8HR 7 Days #21 cap 01/12/19 Hydrocortisone Suppository 25 mg RECTAL BID #10 supp 01/12/19 [Anusol-Hc] Insulin Glargine,Hum.rec.anlog 15 unit SQ HS #1 syr 01/12/19 [Basaglar Kwikpen U-100] Insulin Glulisine [Apidra Solostar] 5 unit SQ TID-W/MEALS #15 ml 01/12/19 Ibuprofen [Motrin] 600 mg PO Q8HR PRN #30 tab 08/30/19 Ondansetron [Zofran ODT] 4 mg PO Q8HR PRN #10 tab 08/30/19 Tamsulosin HCl [Flomax] 0.4 mg PO DAILY #7 cap 08/30/19 Clindamycin [Cleocin] 450 mg PO Q8H 7 Days #63 cap 09/08/20 HYDROcodone/APAP 5-325MG [[place] 1 tab PO Q6HR PRN #10 tab 09/08/20 5-325] Amoxic-Pot Clav 875-125Mg 1 tab PO Q12HR 14 Days #28 tab 01/19/22 [Augmentin 875-125] Allergies Allergy/AdvReac Type Severity Reaction Status Date / Time bee venom protein (honey bee) Allergy Anaphylaxis Verified 01/19/22 17:17 levofloxacin [From Levaquin] Allergy Anaphylaxis Verified 01/19/22 17:17 Review of Systems ROS Statement: Those systems with pertinent positive or pertinent negative responses have been documented in the HPI. ROS Other: All systems not noted in ROS Statement are negative. Past Medical History Past Medical History: Diabetes Mellitus, GERD/Reflux, Hyperlipidemia, Hypertens ion, Osteoarthritis (OA), Sleep Apnea/CPAP/BIPAP Additional Past Medical History / Comment(s): NIDDM type II, bronchitis, LILIANA with Cpap, bilateral tinnitis, arthritis bilateral knees (R knee worse) and hands, carpal tunnel syndrome bilaterally, migraines. History of Any Multi-Drug Resistant Organisms: None Reported Past Surgical History: Hernia Repair, Orthopedic Surgery Additional Past Surgical History / Comment(s): Umbilical hernia repair, R hand surgery d/t degloving when 9 year old, EGD, colonoscopy with benign polypectomies. Past Anesthesia/Blood Transfusion Reactions: No Reported Reaction Past Psychological History: No Psychological Hx Reported Smoking Status: Current every day smoker Past Alcohol Use History: Daily Past Drug Use History: Marijuana - Past Family History Father Additional Family Medical History / Comment(s): Pt does not know father's medical history, he recently reestablished contact with his father. Mother Family Medical History: Vascular Disorder Additional Family Medical History / Comment(s): Mother from a brain aneur ysm at the age of 62 yrs. General Exam Limitations: no limitations General appearance: alert, in no apparent distress Head exam: Present: atraumatic, normocephalic Eye exam: Present: normal appearance, PERRL ENT exam: Present: mucous membranes dry Neck exam: Present: normal inspection. Absent: tenderness, meningismus Respiratory exam: Present: normal lung sounds bilaterally. Absent: respiratory distress, wheezes Cardiovascular Exam: Present: regular rate, normal rhythm GI/Abdominal exam: Present: soft. Absent: distended, tenderness, guarding Extremities exam: Present: normal inspection, normal capillary refill Neurological exam: Present: alert, oriented X3, CN II-XII intact. Absent: motor sensory deficit Psychiatric exam: Present: normal affect, normal mood Skin exam: Present: warm, dry, intact. Absent: cyanosis, diaphoretic Course Vital Signs 01/19/22 01/19/22 17:15 19:23 Temperature 97.8 F Pulse Rate 82 74 Respiratory 18 16 Rate Blood Pressure 156/103 121/82 O2 Sat by Pulse 96 96 Oximetry EKG Findings - EKG Comments: EKG Findings:: EKG: Sinus rhythm rate of 79, OR interval 147, QRS duration 92, QTC 390, no ST segment elevation, T-wave inversion in aVL and the lateral precordial leads. Medical Decision Making - Medical Decision Making 51-year-old male that usually 40 patient believes he was overdoing it. He also has had some cough and cold symptoms over the past several days. No central chest pain. He was urged to come to the emergency department by his . He is agreeable with workup. He had mild headache as well so CT was ordered as well as chest x-ray, EKG and lab testing. EKG shows sinus rhythm with some T- wave inversion which was present on previous EKG again there is no active chest pain or ACS symptoms. Patient had head CT showing a sinusitis without other acute abnormality. Chest x-ray negative for acute cardiac primary findings. There is mild leukocytosis and otherwise normal lab tests including troponin. The patient's given IV fluids monitored in the emergency department. He is eager for discharge. I did offer observation for continued hydration, telemetry monitoring and reevaluation. Patient is eager for discharge at this time. He will return with any worsening or changing symptoms. He will be treated for sinusitis. - Lab Data Result diagrams: 01/19/22 17:43 01/19/22 17:43 Lab Results 01/19/22 01/19/22 01/19/22 Range/Units 17:43 17:43 17:43 WBC 13.4 H (3.8-10.6) k/uL RBC 5.69 (4.30-5.90) m/uL Hgb 16.5 (13.0-17.5) gm/dL Hct 49.6 (39.0-53.0) % MCV 87.2 (80.0-100.0) fL MCH 29.1 (25.0-35.0) pg MCHC 33.3 (31.0-37.0) g/dL RDW 12.7 (11.5-15.5) % Plt Count 247 (150-450) k/uL MPV 7.5 Neutrophils % 69 % Lymphocytes % 22 % Monocytes % 4 % Eosinophils % 4 % Basophils % 1 % Neutrophils # 9.2 H (1.3-7.7) k/uL Lymphocytes # 2.9 (1.0-4.8) k/uL Monocytes # 0.5 (0-1.0) k/uL Eosinophils # 0.5 (0-0.7) k/uL Basophils # 0.2 (0-0.2) k/uL PT 10.7 (9.0-12.0) sec INR 1.0 (<1.2) APTT 27.0 (22.0-30.0) sec Sodium (137-145) mmol/L Potassium (3.5-5.1) mmol/L Chloride (98-107) mmol/L Carbon Dioxide (22-30) mmol/L Anion Gap mmol/L BUN (9-20) mg/dL Creatinine (0.66-1.25) mg/dL Est GFR (CKD-EPI)AfAm (>60 ml/min/1.73 sqM) Est GFR (CKD-EPI)NonAf (>60 ml/min/1.73 sqM) Glucose (74-99) mg/dL Plasma Lactic Acid Bart (0.7-2.0) mmol/L Calcium (8.4-10.2) mg/dL Magnesium (1.6-2.3) mg/dL Total Bilirubin (0.2-1.3) mg/dL AST (17-59) U/L ALT (4-49) U/L Alkaline Phosphatase (38-126) U/L Troponin I (0.000-0.034) ng/mL Total Protein (6.3-8.2) g/dL Albumin (3.5-5.0) g/dL Urine Color Yellow Urine Appearance Clear (Clear) Urine pH 6.0 (5.0-8.0) Ur Specific [place] 1.017 (1.001-1.035) Urine Protein 2+ H (Negative) Urine Glucose (UA) Negative (Negative) Urine Ketones 1+ H (Negative) Urine Blood Negative (Negative) Urine Nitrite Negative (Negative) Urine Bilirubin Negative (Negative) Urine Urobilinogen <2.0 (<2.0) mg/dL Ur Leukocyte Esterase Negative (Negative) Urine RBC 5 (0-5) /hpf Urine WBC 2 (0-5) /hpf Urine Mucus Occasional H (None) /hpf 01/19/22 01/19/22 01/19/22 Range/Units 17:43 17:43 17:43 WBC (3.8-10.6) k/uL RBC (4.30-5.90) m/uL Hgb (13.0-17.5) gm/dL Hct (39.0-53.0) % MCV (80.0-100.0) fL MCH (25.0-35.0) pg MCHC (31.0-37.0) g/dL RDW (11.5-15.5) % Plt Count (150-450) k/uL MPV Neutrophils % % Lymphocytes % % Monocytes % % Eosinophils % % Basophils % % Neutrophils # (1.3-7.7) k/uL Lymphocytes # (1.0-4.8) k/uL Monocytes # (0-1.0) k/uL Eosinophils # (0-0.7) k/uL Basophils # (0-0.2) k/uL PT (9.0-12.0) sec INR (<1.2) APTT (22.0-30.0) sec Sodium 139 (137-145) mmol/L Potassium 4.0 (3.5-5.1) mmol/L Chloride 106 (98-107) mmol/L Carbon Dioxide 22 (22-30) mmol/L Anion Gap 11 mmol/L BUN 13 (9-20) mg/dL Creatinine 0.80 (0.66-1.25) mg/dL Est GFR (CKD-EPI)AfAm >90 (>60 ml/min/1.73 sqM) Est GFR (CKD-EPI)NonAf >90 (>60 ml/min/1.73 sqM) Glucose 113 H (74-99) mg/dL Plasma Lactic Acid Bart 1.1 (0.7-2.0) mmol/L Calcium 9.6 (8.4-10.2) mg/dL Magnesium 1.7 (1.6-2.3) mg/dL Total Bilirubin 0.7 (0.2-1.3) mg/dL AST 36 (17-59) U/L ALT 56 H (4-49) U/L Alkaline Phosphatase 85 (38-126) U/L Troponin I <0.012 (0.000-0.034) ng/mL Total Protein 7.8 (6.3-8.2) g/dL Albumin 5.0 (3.5-5.0) g/dL Urine Color Urine Appearance (Clear) Urine pH (5.0-8.0) Ur Specific [place] (1.001-1.035) Urine Protein (Negative) Urine Glucose (UA) (Negative) Urine Ketones (Negative) Urine Blood (Negative) Urine Nitrite (Negative) Urine Bilirubin (Negative) Urine Urobilinogen (<2.0) mg/dL Ur Leukocyte Esterase (Negative) Urine RBC (0-5) /hpf Urine WBC (0-5) /hpf Urine Mucus (None) /hpf Disposition Clinical Impression: Dehydration, Sinusitis Disposition: HOME SELF-CARE Condition: Good Instructions (If sedation given, give patient instructions): Dizziness (ED), Sinusitis (ED) Prescriptions: Amoxic-Pot Clav 875-125Mg [Augmentin 875-125] 1 tab PO Q12HR 14 Days #28 tab Is patient prescribed a controlled substance at d/c from ED?: No Referrals: Venice Estevez MD [Primary Care Provider] - 1-2 days Time of Disposition: 19:39
[2022-01-19 17:56] LABS: Basophils # (A) 0.2 k/uL (0-0.2); Basophils % (A) 1 %; Eosinophils # (A) 0.5 k/uL (0-0.7); Eosinophils % (A) 4 %; HCT 49.6 % (39.0-53.0); HGB 16.5 gm/dL (13.0-17.5); Lymphocytes # (A) 2.9 k/uL (1.0-4.8); Lymphocytes % (A) 22 %; MCH 29.1 pg (25.0-35.0); MCHC 33.3 g/dL (31.0-37.0); MCV 87.2 fL (80.0-100.0); Mean Platelet Volume 7.5; Monocytes # (A) 0.5 k/uL (0-1.0); Monocytes % (A) 4 %; Neutrophils # (A) 9.2 k/uL (1.3-7.7); Neutrophils % (A) 69 %; Platelet Count 247 k/uL (150-450); RBC 5.69 m/uL (4.30-5.90); RDW 12.7 % (11.5-15.5); WBC 13.4 k/uL (3.8-10.6)
[2022-01-19 18:08] LABS: Prothrombin Time 10.7 sec (9.0-12.0)
[2022-01-19 18:18] LABS: Appearance,Urine Clear (Clear); Bilirubin,Urine Negative (Negative); Blood,Urine Negative (Negative); Color,Urine Yellow; Glucose,Urine (UA) Negative (Negative); Ketones,Urine 1+ (Negative); Leukocyte Esterase,Urine Negative (Negative); Mucus,Urine Occasional /hpf; Nitrite,Urine Negative (Negative); Protein,Urine 2+ (Negative); RBC,Urine 5 /hpf (0-5); Specific Gravity,Urine 1.017 (1.001-1.035); Urobilinogen,Urine <2.0 mg/dL (<2.0); WBC,Urine 2 /hpf (0-5)
[2022-01-19 18:24] LABS: ALT 56 U/L (4-49); AST 36 U/L (17-59); African American GFR (CKD) >90 (>60 ml/min/1.73 sqM); Alkaline Phosphatase 85 U/L (38-126); Anion Gap 11 mmol/L; Blood Urea Nitrogen 13 mg/dL (9-20); Calcium 9.6 mg/dL (8.4-10.2); Carbon Dioxide 22 mmol/L (22-30); Chloride 106 mmol/L (98-107); Glucose 113 mg/dL (74-99); Magnesium 1.7 mg/dL (1.6-2.3); Non-African American GFR(CKD) >90 (>60 ml/min/1.73 sqM); Sodium 139 mmol/L (137-145); Total Bilirubin 0.7 mg/dL (0.2-1.3); Total Protein 7.8 g/dL (6.3-8.2)
--- NOTE | 2022-01-19 18:37 | CT ---
EXAMINATION TYPE: CT brain wo con DATE OF EXAM: 01/19/2022 COMPARISON: None HISTORY: weakness CT DLP: 1213.4 mGycm Automated exposure control for dose reduction was used. Ventricles and sulci appear normal. There is no mass effect or midline shift. No sign of intracranial hemorrhage. The calvarium is intact. No evidence of cerebral edema. There is mucosal thickening in t he ethmoid air cells. There is mucosal thickening left maxillary sinus. IMPRESSION: Negative CT scan of the brain. Sinusitis.
--- NOTE | 2022-01-19 19:08 | XR ---
EXAMINATION TYPE: XR chest 2V DATE OF EXAM: 01/19/2022 COMPARISON: 08/20/2018 HISTORY: Chest pain TECHNIQUE: 3 views FINDINGS: Heart and mediastinum are normal. Lungs are clear. Diaphragm is normal. Bony thorax is inta ct. IMPRESSION: Normal chest. No change.
[2022-01-19 20:06] VITALS: BP 124/79; PULSE 77; RESP 18; TEMP 98.3
== END 2022-01-19 20:05 | disposition home or self-care (01) ==
LOC: EC 16:07
DX: E86.0 Dehydration (principal); J32.9 Chronic sinusitis, unspecified; E11.9 Type 2 diabetes mellitus without complications; E78.5 Hyperlipidemia, unspecified; I10 Essential (primary) hypertension; F17.200 Nicotine dependence, unspecified, uncomplicated; Z91.030 Bee allergy status; Z88.1 Allergy status to other antibiotic agents
CPT/HCPCS: 36415; 70450; 71046; 80053; 81001; 83605; 83735; 84484; 85025; 85610; 85730; 93005; 96360; 99285

== ENCOUNTER 2022-10-19 15:08 | Emergency (ER) | payer OTHER ==
[2022-10-19] MEDS ORDERED: SODIUM CHLORIDE 0.9% 1,000 ML IV STA (16:08)
[2022-10-19] MEDS ORDERED: LORazepam 2 MG/ML INJ IV STA (16:09)
[2022-10-19] MEDS ORDERED: KETOROLAC 15 MG/ML 1 ML VIAL IVP STA (16:09)
[2022-10-19] MEDS ORDERED: diphenhydrAMINE 50 MG/ML 1 ML VIAL IVP STA (16:09)
[2022-10-19 16:49] LABS: Basophils # (A) 0.1 k/uL (0-0.2); Basophils % (A) 1 %; Eosinophils # (A) 0.5 k/uL (0-0.7); Eosinophils % (A) 6 %; HCT 52.4 % (39.0-53.0); HGB 17.9 gm/dL (13.0-17.5); Lymphocytes # (A) 2.4 k/uL (1.0-4.8); Lymphocytes % (A) 25 %; MCH 29.7 pg (25.0-35.0); MCHC 34.2 g/dL (31.0-37.0); MCV 86.7 fL (80.0-100.0); Monocytes # (A) 0.5 k/uL (0-1.0); Monocytes % (A) 5 %; Neutrophils # (A) 5.9 k/uL (1.3-7.7); Neutrophils % (A) 62 %; Platelet Count 221 k/uL (150-450); RBC 6.04 m/uL (4.30-5.90); RDW 12.8 % (11.5-15.5); WBC 9.6 k/uL (3.8-10.6)
[2022-10-19 17:02] LABS: Sodium 139 mmol/L (137-145)
[2022-10-19 17:03] LABS: ALT 44 U/L (4-49); AST 47 U/L (17-59); African American GFR (CKD) >90 (>60 ml/min/1.73 sqM); Albumin 4.9 g/dL (3.5-5.0); Alkaline Phosphatase 75 U/L (38-126); Anion Gap 11 mmol/L; Blood Urea Nitrogen 17 mg/dL (9-20); Carbon Dioxide 20 mmol/L (22-30); Chloride 108 mmol/L (98-107); Glucose 91 mg/dL (74-99); Non-African American GFR(CKD) >90 (>60 ml/min/1.73 sqM); Total Protein 8.4 g/dL (6.3-8.2)
--- NOTE | 2022-10-19 17:12 | ED ---
Syncope HPI - General Chief Complaint: Syncope Stated Complaint: Fall Time Seen by Provider: 10/19/22 15:59 Source: EMS, RN notes reviewed Mode of arrival: EMS Limitations: no limitations - History of Present Illness Initial Comments: This is a 52-year-old male who presents to the emergency department for a syncopal episode. Patient and his went to taoist for the first time in 3 years earlier today. Patient has extreme anxiety about being out in the public, and states that when he went to pray, he started to hyperventilate and subsequently passed out. This has happened to him several times in the past as a result of his extreme anxiety. When he fell, he hit his head and his cane went up underneath his right rib cage. Currently complaining of pain to his head and right side of the chest. He was unconscious for approximately 3-4 minutes. Denies any chest pain or shortness of breath. Denies any fevers, chills, sore throat, cough, dyspnea, palpitations, abdominal pain, nausea, vomiting, or diarrhea. MD Complaint: loss of consciousness - Related Data Home Medications Medication Instructions Recorded Confirmed gemfibroziL [Lopid] 600 mg PO AC-BID 08/20/18 01/09/19 lisinopriL [Zestril] 2.5 mg PO DAILY 08/20/18 01/09/19 metFORMIN HCL [Glucophage] 500 mg PO BID 08/20/18 01/09/19 Albuterol Nebulized [Ventolin 2.5 mg INHALATION RT-TID PRN 01/09/19 01/09/19 Nebulized] Ergocalciferol (Vitamin D2) 50,000 unit PO MOFR 01/09/19 01/09/19 [Vitamin D2] Mometasone/Formoterol [Dulera 100 2 puff INHALATION RT-BID 01/09/19 01/09/19 Mcg-5 Mcg Inhaler] Nicotine 21Mg/24Hr Patch [Habitrol] 1 patch TRANSDERM DAILY 01/09/19 01/09/19 Previous Rx's Medication Instructions Recorded Cephalexin [Keflex] 500 mg PO Q8HR 7 Days #21 cap 01/12/19 Hydrocortisone Suppository 25 mg RECTAL BID #10 supp 01/12/19 [Anusol-Hc] Insulin Glargine,Hum.rec.anlog 15 unit SQ HS #1 syr 01/12/19 [Basaglar Kwikpen U-100] Insulin Glulisine [Apidra Solostar] 5 unit SQ TID-W/MEALS #15 ml 01/12/19 Ibuprofen [Motrin] 600 mg PO Q8HR PRN #30 tab 08/30/19 Ondansetron [Zofran ODT] 4 mg PO Q8HR PRN #10 tab 08/30/19 Tamsulosin HCl [Flomax] 0.4 mg PO DAILY #7 cap 08/30/19 Clindamycin [Cleocin] 450 mg PO Q8H 7 Days #63 cap 09/08/20 HYDROcodone/APAP 5-325MG [[place] 1 tab PO Q6HR PRN #10 tab 09/08/20 5-325] Amoxic-Pot Clav 875-125Mg 1 tab PO Q12HR 14 Days #28 tab 01/19/22 [Augmentin 875-125] Allergies Allergy/AdvReac Type Severity Reaction Status Date / Time bee venom protein (honey bee) Allergy Anaphylaxis Verified 10/19/22 15:38 levofloxacin [From Levaquin] Allergy Anaphylaxis Verified 10/19/22 15:38 Review of Systems ROS Statement: Those systems with pertinent positive or pertinent negative responses have been documented in the HPI. ROS Other: All systems not noted in ROS Statement are negative. Past Medical History Past Medical History: Diabetes Mellitus, GERD/Reflux, Hyperlipidemia, Hypertension, Osteoarthritis (OA), Sleep Apnea/CPAP/BIPAP Additional Past Medical History / Comment(s): NIDDM type II, bronchitis, LILIANA with Cpap, bilateral tinnitis, arthritis bilateral knees (R knee worse) and hands, carpal tunnel syndrome bilaterally, migraines. History of Any Multi-Drug Resistant Organisms: None Reported Past Surgical History: Hernia Repair, Orthopedic Surgery Additional Past Surgical History / Comment(s): Umbilical hernia repair, R hand surgery d/t degloving when 9 year old, EGD, colonoscopy with benign polypectomies. Past Anesthesia/Blood Transfusion Reactions: No Reported Reaction Past Psychological History: No Psychological Hx Reported Smoking Status: Current every day smoker Past Alcohol Use History: Occasional Past Drug Use History: Marijuana - Past Family History Father Additional Family Medical History / Comment(s): Pt does not know father's medical history, he recently reestablished contact with his father. Mother Family Medical History: Vascular Disorder Additional Family Medical History / Comment(s): Mother from a brain aneurysm at the age of 62 yrs. General Exam Limitations: no limitations General appearance: alert, in no apparent distress Head exam: Present: atraumatic, normocephalic, normal inspection Eye exam: Present: normal appearance, PERRL, EOMI. Absent: scleral icterus, conjunctival injection, periorbital swelling Neck exam: Present: tenderness (Posterior and right lateral cervical spine) Respiratory exam: Present: normal lung sounds bilaterally, chest wall tenderness (Right-sided). Absent: respiratory distress, wheezes, rales, rhonchi, stridor Cardiovascular Exam: Present: regular rate, normal rhythm, normal heart sounds. Absent: systolic murmur, diastolic murmur, rubs, gallop, clicks Neurological exam: Present: alert, oriented X3, CN II-XII intact Psychiatric exam: Present: normal affect, normal mood Skin exam: Present: warm, dry, intact, normal color. Absent: rash Course Vital Signs 10/19/22 10/19/22 10/19/22 15:28 16:00 17:00 Temperature 98.0 F Pulse Rate 72 87 92 Respiratory 20 18 18 Rate Blood Pressure 159/97 159/89 147/97 O2 Sat by Pulse 96 95 96 Oximetry 10/19/22 18:14 Temperature 97.8 F Pulse Rate 89 Respiratory 18 Rate Blood Pressure 144/90 O2 Sat by Pulse 97 Oximetry Medical Decision Making - Medical Decision Making This is a 52-year-old male who presents to the emergency department for a syncopal episode. Was pt. sent in by a medical professional or institution? @ -No Did you speak to anyone other than the patient for history? @ -No Did you review nursing and triage notes? @ -Yes, and I agree, it is accurate with regards to the patient's symptoms. Were old charts reviewed? @ -No Differential Diagnosis? @ -Differential Syncope: Valvular disease, hypertrophic cardiomyopathy, pulmonary embolism, tamponade, tachycardia, bradycardia, DC, hypovolemia, hemorrhage, dissection, anemia, intracranial hemorrhage, seizure, hypoglycemia, carbon monoxide poisoning, this is not meant to be an all-inclusive list. EKG interpreted by me (3pts min.)? @ -Sinus rhythm. Ventricular rate 77 bpm, GA interval 164 ms, QRS duration 109 ms, QTC [address] interpreted by me (1pt min.)? @ -Computed tomography scan of the brain and c-spine obtained. My interpretation identifies no evidence of an acute intracranial hemorrhage, skull fracture, or cervical spine fracture. Computed tomography scan of the chest and abdomen obtained as well. My interpretation identifies no evidence of a rib fracture or free fluid. What testing was considered but not performed? (CT, X-rays, U/S, labs)? Why? @ -None What meds were considered but not given? Why? @ -None Did you discuss the management of the patient with other professionals? @ -No Did you reconcile home meds? @ -No Was smoking cessation discussed for >3mins.? @ -No Was critical care preformed (if so, how long)? @ -No Were there social determinants of health that impacted care today? How? (Homelessness, low income, unemployed, alcoholism, drug addiction, transportation, low edu. Level, literacy, decrease access to med. care, assisted, rehab)? @ -No Was there de-escalation of care discussed even if they declined? (Discuss DNR or withdrawal of care, Hospice)? @ -No What co-morbidities impacted this encounter? (DM, HTN, Smoking, COPD, CAD, Cancer, CVA, Hep., AIDS, mental health diagnosis, sleep apnea, morbid obesity)? @ -Generalized anxiety disorder, DM, HTN, HLD Was patient admitted / discharged? @ -Discharged. Lab work obtained and found to be nonactionable. Computed tomography scan of the brain, C-spine, chest, and abdomen obtained revealing no acute findings. He was given Toradol, IV fluids, and Zofran for his symptoms, which he states was very beneficial. He did require Ativan and Benadryl prior to having the computed tomography scan due to severe claustrophobia. Patient overall feels stable for discharge home, and states that again this is a recurrent problem for him as a result of his severe social anxiety. Advised the patient that he needs to discuss this with the prescribing provider for possible medication adjustments to prevent this from happening to him in the future. Ronel shearer is instructed to alternate with ibuprofen and tylenol for pain relief and apply ice to the areas of pain for 15-20 minutes every 2-3 hours for the first 2-3 days followed by heat there afterwards. Also advised to get plenty of rest and drink plenty of fluids. Undiagnosed new problem with uncertain prognosis? @ -None Drug Therapy requiring intensive monitoring for toxicity (Heparin, Nitro, Insulin, Cardizem)? @ -None Were any procedures done? @ -None Diagnosis/symptom? @ -Fall, closed head injury Acute, or Chronic, or Acute on Chronic? @ -Acute Uncomplicated (without systemic symptoms) or Complicated (systemic symptoms)? @ -Uncomplicated Side effects of treatment? @ -None Exacerbation, Progression, or Severe Exacerbation] @ -Not applicable Poses a threat to life or bodily function? @ -No Diagnosis/symptom? @ -Generalized anxiety disorder Acute, or Chronic, or Acute on Chronic? @ -Acute on chronic Uncomplicated (without systemic symptoms) or Complicated (systemic symptoms)? @ -Uncomplicated Side effects of treatment? @ -None Exacerbation, Progression, or Severe Exacerbation] @ -Exacerbation Poses a threat to life or bodily function? @ -No Return precautions reviewed in depth, the patient is instructed to return to the emergency department with any new, worsening, or concerning symptoms. Patient verbalized understanding. This case was discussed in detail with the attending ED physician, Dr. Medina. Presentation, findings, and treatment plan discussed in detail as well. - Lab Data Result diagrams: 10/19/22 16:25 10/19/22 16:25 Lab Results 10/19/22 10/19/22 10/19/22 Range/Units 16:25 16:25 16:25 WBC 9.6 (3.8-10.6) k/uL RBC 6.04 H (4.30-5.90) m/uL Hgb 17.9 H (13.0-17.5) gm/dL Hct 52.4 (39.0-53.0) % MCV 86.7 (80.0-100.0) fL MCH 29.7 (25.0-35.0) pg MCHC 34.2 (31.0-37.0) g/dL RDW 12.8 (11.5-15.5) % Plt Count 221 (150-450) k/uL MPV 8.0 Neutrophils % 62 % Lymphocytes % 25 % Monocytes % 5 % Eosinophils % 6 % Basophils % 1 % Neutrophils # 5.9 (1.3-7.7) k/uL Lymphocytes # 2.4 (1.0-4.8) k/uL Monocytes # 0.5 (0-1.0) k/uL Eosinophils # 0.5 (0-0.7) k/uL Basophils # 0.1 (0-0.2) k/uL PT 10.4 (9.0-12.0) sec INR 1.0 (<1.2) APTT 26.5 (22.0-30.0) sec Sodium 139 (137-145) mmol/L Potassium 5.4 H (3.5-5.1) mmol/L Chloride 108 H (98-107) mmol/L Carbon Dioxide 20 L (22-30) mmol/L Anion Gap 11 mmol/L BUN 17 (9-20) mg/dL Creatinine 0.67 (0.66-1.25) mg/dL Est GFR (CKD-EPI)AfAm >90 (>60 ml/min/1.73 sqM) Est GFR (CKD-EPI)NonAf >90 (>60 ml/min/1.73 sqM) Glucose 91 (74-99) mg/dL Calcium 10.0 (8.4-10.2) mg/dL Total Bilirubin 1.0 (0.2-1.3) mg/dL AST 47 (17-59) U/L ALT 44 (4-49) U/L Alkaline Phosphatase 75 (38-126) U/L Troponin I (0.000-0.034) ng/mL Total Protein 8.4 H (6.3-8.2) g/dL Albumin 4.9 (3.5-5.0) g/dL Urine Color Urine Appearance (Clear) Urine pH (5.0-8.0) Ur Specific [place] (1.001-1.035) Urine Protein (Negative) Urine Glucose (UA) (Negative) Urine Ketones (Negative) Urine Blood (Negative) Urine Nitrite (Negative) Urine Bilirubin (Negative) Urine Urobilinogen (<2.0) mg/dL Ur Leukocyte Esterase (Negative) Urine RBC (0-5) /hpf Urine WBC (0-5) /hpf Urine Mucus (None) /hpf Urine Opiates Screen (NotDetected) Ur Oxycodone Screen (NotDetected) Urine Methadone Screen (NotDetected) Ur Propoxyphene Screen (NotDetected) Ur Barbiturates Screen (NotDetected) U Tricyclic Antidepress (NotDetected) Ur Phencyclidine Scrn (NotDetected) Ur Amphetamines Screen (NotDetected) U Methamphetamines Scrn (NotDetected) U Benzodiazepines Scrn (NotDetected) Urine Cocaine Screen (NotDetected) U Marijuana (THC) Screen (NotDetected) 10/19/22 10/19/22 10/19/22 Range/Units 16:25 18:00 18:00 WBC (3.8-10.6) k/uL RBC (4.30-5.90) m/uL Hgb (13.0-17.5) gm/dL Hct (39.0-53.0) % MCV (80.0-100.0) fL MCH (25.0-35.0) pg MCHC (31.0-37.0) g/dL RDW (11.5-15.5) % Plt Count (150-450) k/uL MPV Neutrophils % % Lymphocytes % % Monocytes % % Eosinophils % % Basophils % % Neutrophils # (1.3-7.7) k/uL Lymphocytes # (1.0-4.8) k/uL Monocytes # (0-1.0) k/uL Eosinophils # (0-0.7) k/uL Basophils # (0-0.2) k/uL PT (9.0-12.0) sec INR (<1.2) APTT (22.0-30.0) sec Sodium (137-145) mmol/L Potassium (3.5-5.1) mmol/L Chloride (98-107) mmol/L Carbon Dioxide (22-30) mmol/L Anion Gap mmol/L BUN (9-20) mg/dL Creatinine (0.66-1.25) mg/dL Est GFR (CKD-EPI)AfAm (>60 ml/min/1.73 sqM) Est GFR (CKD-EPI)NonAf (>60 ml/min/1.73 sqM) Glucose (74-99) mg/dL Calcium (8.4-10.2) mg/dL Total Bilirubin (0.2-1.3) mg/dL AST (17-59) U/L ALT (4-49) U/L Alkaline Phosphatase (38-126) U/L Troponin I <0.012 (0.000-0.034) ng/mL Total Protein (6.3-8.2) g/dL Albumin (3.5-5.0) g/dL Urine Color Yellow Urine Appearance Clear (Clear) Urine pH 6.5 (5.0-8.0) Ur Specific [place] 1.022 (1.001-1.035) Urine Protein 1+ H (Negative) Urine Glucose (UA) Negative (Negative) Urine Ketones 1+ H (Negative) Urine Blood Negative (Negative) Urine Nitrite Negative (Negative) Urine Bilirubin Negative (Negative) Urine Urobilinogen 2.0 (<2.0) mg/dL Ur Leukocyte Esterase Negative (Negative) Urine RBC 1 (0-5) /hpf Urine WBC 1 (0-5) /hpf Urine Mucus Rare H (None) /hpf Urine Opiates Screen Not Detected (NotDetected) Ur Oxycodone Screen Not Detected (NotDetected) Urine Methadone Screen Not Detected (NotDetected) Ur Propoxyphene Screen Not Detected (NotDetected) Ur Barbiturates Screen Not Detected (NotDetected) U Tricyclic Antidepress Detected H (NotDetected) Ur Phencyclidine Scrn Not Detected (NotDetected) Ur Amphetamines Screen Not Detected (NotDetected) U Methamphetamines Scrn Not Detected (NotDetected) U Benzodiazepines Scrn Not Detected (NotDetected) Urine Cocaine Screen Not Detected (NotDetected) U Marijuana (THC) Screen Detected H (NotDetected) - Radiology Data Radiology results: report reviewed, image reviewed Disposition Clinical Impression: Syncope, Generalized anxiety disorder Disposition: HOME SELF-CARE Instructions (If sedation given, give patient instructions): Syncope (ED), Generalized Anxiety Disorder (ED), Anxiety (ED) Additional Instructions: Return to the emergency department with any new, worsening, or concerning symptoms. Alternate with ibuprofen and Tylenol as needed for pain relief. Apply ice to the affected areas for 15-20 minutes every 2-3 hours. Make sure t hat you get plenty of rest and drink lots of fluids. Follow-up with your prescribing provider about changing your anxiety medication. Follow up with your primary care provider in 1-2 days. Is patient prescribed a controlled substance at d/c from ED?: No Referrals: Venice Estevez MD [Primary Care Provider] - 1-2 days
[2022-10-19 17:14] LABS: Potassium 5.4 mmol/L (3.5-5.1)
[2022-10-19 17:21] LABS: Partial Thromboplastin Time 26.5 sec (22.0-30.0); Prothrombin Time 10.4 sec (9.0-12.0)
--- NOTE | 2022-10-19 17:34 | CT ---
EXAMINATION TYPE: CT brain cspine wo con DATE OF EXAM: 10/19/2022 COMPARISON: 01/19/2022 CT brain HISTORY: syncope and hit head CT DLP: 3430.4 mGycm Automated exposure control for dose reduction was used. Images of the brain and cervical spine obtained with no contrast. Ventricles and sulci appear normal. There is no mass effect or midline shift. No sign of intracranial hemorrhage. Calvarium appears normal. No evidence of cerebral edema. There is mucosal thickening in the ethmoid and frontal sinuses. There is normal aeration of the mastoid sinuses. Cervical vertebra show normal alignment. There is minimal disc space narrowing at C5-6 and C6-7. No c ompression fracture. Posterior elements are intact. Exam limited by patient's size. Facet joints are intact. IMPRESSION: Mild spondylosis in the lower cervical spine. No fracture. Negative CT scan of the brain. Brain and unchanged. There is ethmoid and frontal sinusitis similar to old exam. There is clearing of left maxillary sinus compared to old exam.
--- NOTE | 2022-10-19 17:41 | CT ---
EXAMINATION TYPE: CT chest abdomen wo con DATE OF EXAM: 10/19/2022 COMPARISON: None HISTORY: syncope and hit head and RT sided pain CT DLP: 3430.4 mGycm Automated exposure control for dose reduction was used. Images obtained from the thoracic inlet to the iliac crests with no contrast. FINDINGS: The lungs are clear of infiltrate. No pleural effusion or pneumothorax. There is no mediastinal adeno [place]. There are no hilar masses. Heart size is normal. No pericardial effusion. There is 2 cm cyst in the left lobe of the liver. Exam limited by motion. Spleen is intact. No pancre atic mass the stomach is intact. The bile ducts are not dilated. Gallbladder appears normal. There is no adrenal mass. There is 3 mm calculus lower pole right kidney. Ureters are not dilated. Th ere is no hydronephrosis. Distal ureters not included on this exam of the abdomen. There is minimal stranding around the kidneys could relate to previous obstruction. Appendix is posterior and appears normal. The thoracic and lumbar vertebra contact. No compression fr acture. The facet joints are intact. Sternum is intact. No evidence of rib fracture. The shoulder franc nts appear intact. IMPRESSION: Negative CT scan of the chest. Right renal calculus. This exam does not exclude or evaluate for an obstructing distal ureteral calcu javier. Normal appendix. Exam limited by motion.
[2022-10-19] MEDS ORDERED: CYCLOBENZAPRINE 10MG STARTER 3 TAB BTL PO STA (17:54)
[2022-10-19] MEDS ORDERED: traMADol 50 MG STARTER PACK 3 TAB BTL PO STA (17:54)
[2022-10-19] MEDS ORDERED: IBUPROFEN 600 MG STARTER PACK 4 TAB BTL PO STA (17:54)
[2022-10-19] MEDS ORDERED: ONDANSETRON 4 MG ODT STARTER PACK 2 TAB BTL PO STA (17:54)
[2022-10-19 18:20] VITALS: RESP 18
[2022-10-19 18:26] VITALS: BP 144/90; PULSE 89; TEMP 97.8
[2022-10-19 18:32] LABS: Appearance,Urine Clear (Clear); Bilirubin,Urine Negative (Negative); Blood,Urine Negative (Negative); Color,Urine Yellow; Glucose,Urine (UA) Negative (Negative); Ketones,Urine 1+ (Negative); Leukocyte Esterase,Urine Negative (Negative); Mucus,Urine Rare /hpf; Nitrite,Urine Negative (Negative); PH, Urine 6.5 (5.0-8.0); Protein,Urine 1+ (Negative); RBC,Urine 1 /hpf (0-5); Specific Gravity,Urine 1.022 (1.001-1.035); WBC,Urine 1 /hpf (0-5)
[2022-10-19 18:42] LABS: Amphetamine Screen,Urine Not Detected (NotDetected); Barbiturate Screen,Urine Not Detected (NotDetected); Benzodiazepines Screen,Urine Not Detected (NotDetected); Cocaine Screen,Urine Not Detected (NotDetected); Methadone Screen, Urine Not Detected (NotDetected); Opiate Screen,Urine Not Detected (NotDetected); Oxycodone Screen, Urine Not Detected (NotDetected); Phencyclidine Screen,Urine Not Detected (NotDetected); Tricyclic Antidepressant,Urine Detected (NotDetected); Urn Cannabinoid Scrn Detected (NotDetected)
== END 2022-10-19 18:14 | disposition home or self-care (01) ==
LOC: EC 15:08
DX: F41.1 Generalized anxiety disorder (principal); R55 Syncope and collapse; N20.0 Calculus of kidney; M47.812 Spondylosis without myelopathy or radiculopathy, cervical region; J32.1 Chronic frontal sinusitis; E11.9 Type 2 diabetes mellitus without complications; I10 Essential (primary) hypertension; G47.30 Sleep apnea, unspecified; M19.90 Unspecified osteoarthritis, unspecified site; F17.200 Nicotine dependence, unspecified, uncomplicated; F12.90 Cannabis use, unspecified, uncomplicated; Z79.84 Long term (current) use of oral hypoglycemic drugs; Z79.899 Other long term (current) drug therapy; Z79.1 Long term (current) use of non-steroidal anti-inflammatories (NSAID); Z91.030 Bee allergy status; Z88.6 Allergy status to analgesic agent
CPT/HCPCS: 36415; 93005; 80053; 84484; 85025; 85610; 85730; 81001; 80306; 72125; 70450; 71250; 74150; 99285; 96374; 96375 ×2; 96361; J2060; J1200; J1885; S0119

== ENCOUNTER → 2022-12-18 | Outpatient (CLI) | payer OTHER ==
--- NOTE | 2022-12-18 15:34 | XR ---
EXAMINATION TYPE: XR thoracic spine 2V DATE OF EXAM: 12/18/2022 12:53 PM INDICATION: Patient age:Male; 52 years old; Reason for study: Pain COMPARISON: CT 10/19/2022 TECHNIQUE: 2 views of the thoracic spine in Frontal and lateral projections. FINDINGS: No evidence of acute fracture. There is scattered multilevel disk space narrowing without loss of ve rtebral body height. There is normal alignment of the thoracic vertebral bodies. Scattered osteophyte formation along the anterior and lateral aspects of the vertebral bodies. Neural foramen are patent given limitations of this exam. Spinal canal appears patent. IMPRESSION: 1. No acute osseous pathology. 2. Mild to moderate multilevel disc degeneration changes throughout the spine.
== END | disposition home or self-care (01) ==
LOC: RADXRMAIN 12:33
PROVIDERS: ATTEND Nurse Practitioner Family
DX: M47.814 Spondylosis without myelopathy or radiculopathy, thoracic region (principal); M51.34 Other intervertebral disc degeneration, thoracic region
CPT/HCPCS: 72070

== ENCOUNTER 2023-01-14 15:05 | Emergency (ER) | payer OTHER ==
[2023-01-14 15:27] VITALS: BP 138/93; PULSE 72; RESP 18; TEMP 97.8
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
== END 2023-01-14 16:51 | disposition home or self-care (01) ==
LOC: EC 15:05
DX: S39.012A Strain of muscle, fascia and tendon of lower back, initial encounter (principal); E11.9 Type 2 diabetes mellitus without complications; I10 Essential (primary) hypertension; M17.0 Bilateral primary osteoarthritis of knee; F17.200 Nicotine dependence, unspecified, uncomplicated; F12.90 Cannabis use, unspecified, uncomplicated; Z91.030 Bee allergy status; Z88.1 Allergy status to other antibiotic agents; Z79.899 Other long term (current) drug therapy; Z79.84 Long term (current) use of oral hypoglycemic drugs; Z79.51 Long term (current) use of inhaled steroids; V49.00XA Driver injured in collision with unspecified motor vehicles in nontraffic accident, initial encounter
CPT/HCPCS: 72128; 72131; 99284

== ENCOUNTER → 2024-05-03 | Outpatient (CLI) | payer OTHER ==
--- NOTE | 2024-05-03 09:47 | XR ---
EXAMINATION TYPE: XR knee limited bilateral DATE OF EXAM: 05/03/2024 CLINICAL HISTORY: pain TECHNIQUE: Three views of the right knee are obtained. COMPARISON: None. FINDINGS: There is no acute fracture/dislocation. The tri-compartment joint spaces appear within no rmal limits. The overlying soft tissue appears unremarkable. IMPRESSION: There is no acute fracture or dislocation.ICD 10 NO FRACTURE, INITIAL EVALUATION [facility], , 05/03/2024 9:45 AM
== END | disposition home or self-care (01) ==
LOC: RADXRMAIN 09:11
PROVIDERS: ATTEND Family Medicine
DX: R52 Pain, unspecified